=== PATIENT | female | born 1985 | race Caucasian/White ===

== ENCOUNTER → 2016-08-07 | Outpatient (CLI) | payer BC ==
[~2016-08-07] MED LIST: ALBUAER2 INH; BUPR150T5 PO; CYAN10005 PO; CYCL10TA6 PO; EFFSR75 PO; GABA-112 PO; LORA5TAB3 PO; METF500T5 PO; NAPR1TAB9 PO; OMEP40CA PO; SYN175 PO
[2016-08-07 14:54] LABS: BASO % 0.1 %; BASO ABS # 0.01 K/uL (0-0.2); COMPLETE YES; HEMATOCRIT 42.7 % (37-47); IG% 0.6 %; LYMPH % 27.6 %; LYMPH ABS # 2.48 K/uL (1.2-3.4); MEAN CELL VOLUME 79.8 fL (80-100); MEAN CORPUSCULAR HEMOGLOBIN 25.4 pg (25-34); MEAN CORPUSCULAR HGB CONC 31.9 g/dl (32-36); MEAN PLATELET VOLUME 8.9 fL (7.4-10.4); MONO % 7.4 %; NEUT % 64.3 %; PLATELET COUNT 313 K/uL (130-400); RED BLOOD COUNT 5.35 M/uL (4.2-5.4); WHITE BLOOD COUNT 8.97 K/uL (4.8-10.8)
== END | disposition home or self-care (01) ==
LOC: C.LAB1850 12:33
PROVIDERS: ATTEND Psychiatry & Neurology Neurology
DX: R20.0 Anesthesia of skin (principal); M25.50 Pain in unspecified joint; E53.8 Deficiency of other specified B group vitamins

== ENCOUNTER → 2016-09-26 | Outpatient (CLI) | payer BC ==
[~2016-09-26] MED LIST changes: +CHOL1000 PO; +EPP3/2 IM; +LISI-729 PO; +PANT40TA PO; +PRED20TA PO; +PRVHFAIN INH
[2016-09-26 17:01] LABS: THYROID STIMULATING HORMONE 0.412 uIu/ml (0.300-4.500)
== END | disposition home or self-care (01) ==
LOC: C.LABPBG 14:24
PROVIDERS: ATTEND Physician Assistant
DX: E03.9 Hypothyroidism, unspecified (principal)

== ENCOUNTER → 2016-10-19 | Outpatient (CLI) | payer BC | END | disposition home or self-care (01) | LOC: C.LABSPEC 09:27 | PROVIDERS: ATTEND Family Medicine | DX: E66.01 Morbid (severe) obesity due to excess calories (principal) ==

== ENCOUNTER → 2016-11-06 | Outpatient (CLI) | payer BC | END | disposition home or self-care (01) | LOC: C.PATHSPEC 13:36 | PROVIDERS: ATTEND Obstetrics & Gynecology | DX: N85.00 Endometrial hyperplasia, unspecified (principal) ==

== ENCOUNTER → 2016-11-28 | Outpatient (CLI) | payer BC | END | disposition home or self-care (01) | LOC: C.LABSPEC 14:04 | PROVIDERS: ATTEND Physician Assistant | DX: N89.8 Other specified noninflammatory disorders of vagina (principal); R30.0 Dysuria ==

== ENCOUNTER → 2016-12-09 | Outpatient (CLI) | payer BC ==
[2016-12-09 17:37] LABS: MANUAL MICROSCOPIC REQUIRED? NO; REVIEW REQ? NO; URINE APPEARANCE TURBID (CLEAR); URINE BILIRUBIN NEG (NEG); URINE COLOR DK YELLOW; URINE EPITHELIAL CELL AUTO >30 /lpf (0-5); URINE NITRITE NEG (NEG); URINE SPECIFIC GRAVITY 1.029 (1.000-1.030); UROBILINOGEN NEG (NEG)
== END | disposition home or self-care (01) ==
LOC: C.LABPBG 15:54
PROVIDERS: ATTEND Physician Assistant
DX: R30.0 Dysuria (principal)

== ENCOUNTER → 2016-12-11 | Outpatient (CLI) | payer BC ==
[2016-12-11 17:01] LABS: ALT/SGPT 39 U/L (12-78); AST/SGOT 19 U/L (15-37); BLOOD UREA NITROGEN 13 mg/dl (7-18); BUN/CREATININE RATIO 17.1 (10-20); CALCIUM 8.5 mg/dl (8.5-10.1); CARBON DIOXIDE 27 mmol/L (21-32); CHLORIDE 107 mmol/L (98-107); CREATININE 0.75 mg/dl (0.60-1.20); GLUCOSE 77 mg/dl (70-99); POTASSIUM 3.8 mmol/L (3.5-5.1); SODIUM 141 mmol/L (136-145)
[2016-12-11 17:03] LABS: ALKALINE PHOSPHATASE 57 U/L (45-117)
[2016-12-12 06:59] LABS: ESTIMATED AVERAGE GLUCOSE 120 mg/dl; HA1C FLAG Normal (Normal)
== END | disposition home or self-care (01) ==
LOC: C.LAB1850 15:35
PROVIDERS: ATTEND Physician Assistant
DX: E28.2 Polycystic ovarian syndrome (principal); E16.1 Other hypoglycemia

== ENCOUNTER → 2017-03-09 | Outpatient (CLI) | payer BC ==
[~2017-03-09] MED LIST changes: -CHOL1000 PO; -EPP3/2 IM; -LISI-729 PO; -PANT40TA PO; -PRED20TA PO; -PRVHFAIN INH
[2017-03-09 18:27] LABS: THYROID STIMULATING HORMONE 0.145 uIu/ml (0.300-4.500)
== END | disposition home or self-care (01) ==
LOC: C.LAB1850 16:45
PROVIDERS: ATTEND Physician Assistant
DX: E06.3 Autoimmune thyroiditis (principal)

== ENCOUNTER → 2017-03-24 | Outpatient (CLI) | payer BC ==
[2017-03-24 17:53] LABS: COMPLETE YES; HEMATOCRIT 42.8 % (37-47); IG% 0.7 %; LYMPH % 24.9 %; LYMPH ABS # 2.16 K/uL (1.2-3.4); MEAN CELL VOLUME 81.8 fL (80-100); MEAN CORPUSCULAR HEMOGLOBIN 25.4 pg (25-34); MEAN CORPUSCULAR HGB CONC 31.1 g/dl (32-36); MEAN PLATELET VOLUME 8.8 fL (7.4-10.4); MONO % 6.8 %; NEUT % 67.6 %; PLATELET COUNT 347 K/uL (130-400); RED BLOOD COUNT 5.23 M/uL (4.2-5.4); WHITE BLOOD COUNT 8.69 K/uL (4.8-10.8)
[2017-03-24 17:57] LABS: URINE APPEARANCE CLOUDY (CLEAR); URINE BILIRUBIN NEG (NEG); URINE COLOR YELLOW; URINE EPITHELIAL CELL AUTO >30 /lpf (0-5); URINE NITRITE NEG (NEG); URINE SPECIFIC GRAVITY 1.031 (1.000-1.030); UROBILINOGEN NEG (NEG)
[2017-03-24 18:00] LABS: MANUAL MICROSCOPIC REQUIRED? NO; REVIEW REQ? YES
[2017-03-24 18:21] LABS: ALT/SGPT 28 U/L (12-78); BLOOD UREA NITROGEN 15 mg/dl (7-18); BUN/CREATININE RATIO 22.6 (10-20); CALCIUM 9.5 mg/dl (8.5-10.1); CARBON DIOXIDE 23 mmol/L (21-32); CHLORIDE 104 mmol/L (98-107); CREATININE 0.68 mg/dl (0.60-1.20); GLUCOSE 103 mg/dl (70-99); POTASSIUM 3.8 mmol/L (3.5-5.1); SODIUM 136 mmol/L (136-145)
[2017-03-24 18:24] LABS: ALKALINE PHOSPHATASE 61 U/L (45-117); AST/SGOT 17 U/L (15-37)
[2017-04-02 15:15] LABS: O&P SOURCE OTHER-STOOL
[2017-04-10 09:34] LABS: BORDETELLA PERTUSSIS SOURCE Nasal Swab
== END | disposition home or self-care (01) ==
LOC: C.LABPBG 14:43
PROVIDERS: ATTEND Family Medicine
DX: R19.7 Diarrhea, unspecified (principal); Z87.898 Personal history of other specified conditions; R10.9 Unspecified abdominal pain; Z20.818 Contact with and (suspected) exposure to other bacterial communicable diseases

== ENCOUNTER → 2017-04-02 | Outpatient (CLI) | payer BC ==
--- NOTE | 2017-04-02 10:03 | DIAGNOSTIC IMAGING REPORT ---
ABDOMINAL ULTRASOUND, RIGHT UPPER QUADRANT HISTORY: Right upper quadrant abdominal pain. COMPARISON: CT of the abdomen and pelvis March 06, 2014. FINDINGS: This study is compromised by suboptimal penetration. Hepatic echogenicity is increased. This represents fatty infiltration of the liver. The liver is mildly enlarged. No hepatic lesions are identified although sensitivity is diminished on this exam. No gallstones or identified. There is no biliary ductal dilatation. The common bile duct measures 6 mm in caliber. The pancreas is largely obscured. There is no right hydronephrosis. IMPRESSION: 1. Fatty infiltration of the liver. 2. No gallstones or biliary ductal dilatation identified. 3. Exam compromised by suboptimal penetration. Largely obscured pancreas. Electronically signed by: Sd Zamora M.D. 04/02/2017 10:02 AM Dictated Date/Time: 04/02/2017 9:59 AM
[2017-04-02 13:20] LABS: THYROID STIMULATING HORMONE 0.707 uIu/ml (0.300-4.500)
== END | disposition home or self-care (01) ==
LOC: C.ULTR 09:26
PROVIDERS: ATTEND Registered Nurse
DX: R10.11 Right upper quadrant pain (principal); E03.9 Hypothyroidism, unspecified; E06.3 Autoimmune thyroiditis; K76.0 Fatty (change of) liver, not elsewhere classified

== ENCOUNTER → 2017-06-05 | Outpatient (CLI) | payer BC ==
[~2017-06-05] MED LIST changes: -ALBUAER2 INH; +CEPH-571 PO; +CHOL1000 PO; +CTF50 PO; +DIPH1TAB87 PO; +EPIN0.3I14 IM; +EPP3/2 IM; +LEVO150T9 PO; +LIRA18IN SC; +LISI-729 PO; +NRN100 PO; -OMEP40CA PO; +OMEP40CA41 PO; +PANT40TA PO; +PRED20TA PO; +PROM25TA16 PO; +PRVHFAIN INH; +PYRI100T4 PO; +VNTHFA/IN INH; +[UNRECOGNIZED DRUG - CODE] TOP
== END | disposition home or self-care (01) ==
LOC: C.LABPBG 12:45
PROVIDERS: ATTEND Obstetrics & Gynecology
DX: Z32.01 Encounter for pregnancy test, result positive (principal)

== ENCOUNTER 2017-06-09 20:08 | Emergency (ER) | payer BC ==
[~2017-06-09] VITALS: Ht 170.2 cm; Wt 143.8 kg
[~2017-06-09 20:08] MED LIST changes: -CEPH-571 PO; -CHOL1000 PO; -CTF50 PO; -DIPH1TAB87 PO; -EFFSR75 PO; -EPIN0.3I14 IM; -LEVO150T9 PO; -LIRA18IN SC; -METF500T5 PO; -NRN100 PO; -OMEP40CA41 PO; -PRED20TA PO; -PROM25TA16 PO; -PYRI100T4 PO; -VNTHFA/IN INH; -[UNRECOGNIZED DRUG - CODE] TOP
[2017-06-09 20:12] VITALS: Ht 170.2 cm; Wt 143.8 kg
[2017-06-09] MEDS ORDERED: EFFSR75 PO (20:20)
[2017-06-09] MEDS ORDERED: METF500T5 PO (20:20)
[2017-06-09] MEDS ORDERED: ACETAMINOPHEN 500 MG TAB PO STA (20:26)
[2017-06-09] MEDS ORDERED: LORAZEPAM 2 MG/ML 1 ML VIAL IV STA (20:26)
[2017-06-09] MEDS ORDERED: DiphenhydrAMINE HCL 50 MG/ML VIAL IV STA (20:26)
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
[2017-06-09 20:31] VITALS: O2SAT 97
[2017-06-09 21:03] LABS: COMPLETE YES; HEMATOCRIT 39.6 % (37-47); IG% 0.6 %; LYMPH % 21.2 %; LYMPH ABS # 1.89 K/uL (1.2-3.4); MEAN CELL VOLUME 80.5 fL (80-100); MEAN CORPUSCULAR HEMOGLOBIN 26.4 pg (25-34); MEAN CORPUSCULAR HGB CONC 32.8 g/dl (32-36); MEAN PLATELET VOLUME 8.4 fL (7.4-10.4); MONO % 6.6 %; NEUT % 71.6 %; PLATELET COUNT 240 K/uL (130-400); RED BLOOD COUNT 4.92 M/uL (4.2-5.4)
[2017-06-09] MEDS ORDERED: [UNRECOGNIZED DRUG - CODE] TOP (21:10)
[2017-06-09] MEDS ORDERED: PROM25TA16 PO (21:10)
[2017-06-09] MEDS ORDERED: OMEP40CA41 PO (21:10)
[2017-06-09] MEDS ORDERED: LEVO150T9 PO (21:10)
[2017-06-09] MEDS ORDERED: NRN100 PO (21:10)
[2017-06-09] MEDS ORDERED: LIRA18IN SC (21:10)
[2017-06-09] MEDS ORDERED: PRED20TA PO (21:10)
[2017-06-09] MEDS ORDERED: CTF50 PO (21:10)
[2017-06-09] MEDS ORDERED: VNTHFA/IN INH (21:10)
[2017-06-09] MEDS ORDERED: EPIN0.3I14 IM (21:10)
[2017-06-09 21:11] LABS: URINE APPEARANCE CLEAR (CLEAR); URINE BILIRUBIN NEG (NEG); URINE COLOR DK YELLOW; URINE EPITHELIAL CELL AUTO >30 /lpf (0-5); URINE NITRITE NEG (NEG); URINE SPECIFIC GRAVITY 1.021 (1.000-1.030); UROBILINOGEN NEG (NEG); ZZUR CULT IF INDIC CLEAN CATCH YES
[2017-06-09] MEDS ORDERED: PYRI100T4 PO (21:12)
[2017-06-09 21:13] LABS: PROTHROMBIN TIME (PATIENT) 10.3 SECONDS (9.0-12.0)
[2017-06-09] MEDS ORDERED: DIPH1TAB87 PO (21:13)
[2017-06-09 21:19] LABS: BLOOD UREA NITROGEN 10 mg/dl (7-18); BUN/CREATININE RATIO 12.2 (10-20); CALCIUM 8.7 mg/dl (8.5-10.1); CARBON DIOXIDE 22 mmol/L (21-32); CHLORIDE 103 mmol/L (98-107); GLUCOSE 92 mg/dl (70-99); POTASSIUM 3.7 mmol/L (3.5-5.1); SODIUM 136 mmol/L (136-145)
[2017-06-09 21:24] LABS: ALKALINE PHOSPHATASE 47 U/L (45-117); ALT/SGPT 31 U/L (12-78); AST/SGOT 16 U/L (15-37)
[2017-06-09 21:29] LABS: MANUAL MICROSCOPIC REQUIRED? NO; REVIEW REQ? NO
--- NOTE | 2017-06-09 21:31 | DIAGNOSTIC IMAGING REPORT ---
CHEST ONE VIEW PORTABLE CLINICAL HISTORY: Chest pain. COMPARISON STUDY: Chest radiograph May 30, 2008. TECHNIQUE: The patient's abdomen and pelvis were double shielded due to positive test. Upright portable AP chest radiograph was obtained. FINDINGS: No pneumothorax or pleural effusion is present. There is no evidence for pulmonary edema. No consolidation is identified. Cardiac size is at the upper limits of normal. This may reflect a hypoventilatory study. IMPRESSION: No acute cardiopulmonary findings. Electronically signed by: Sd Zamora M.D. 06/09/2017 9:30 PM Dictated Date/Time: 06/09/2017 9:29 PM
[2017-06-09] MEDS ORDERED: CEPHALEXIN MONOHYDRATE 250 MG CAP PO ONE (21:45)
[2017-06-09] MEDS ORDERED: CHOL1000 PO (22:03)
--- NOTE | 2017-06-09 22:05 | DIAGNOSTIC IMAGING REPORT ---
<14 WKS SINGLE CLINICAL HISTORY: . Purported dates of LMP 05/03/17 COMPARISON STUDY: No previous studies for comparison. TECHNIQUE: Transabdominal and transvaginal sonography of the pelvis was performed. FINDINGS: An intrauterine gestational sac is noted with a mean sac diameter of 9 mm. A yolk sac is noted, measuring 2.3 mm. No pole was identified. Note is made of an 8 mm hypoechoic subchorionic focus which suggests a small subchorionic hematoma. The right ovary was not visualized. The left ovary measures 3.2 x 2.4 x 2.6 cm and contained a 1.6 cm cystic lesion which may reflect a corpus luteal cyst. There is no free fluid. No adnexal mass is identified. IMPRESSION: 1. Intrauterine gestational sac which contains a yolk sac. No pole identified however this likely reflects a normal early intrauterine gestation. Clinical follow-up, including serial beta hCG levels and ultrasound, is recommend. 2. Suspected small subchorionic hematoma measuring 8 mm. 3. Nonvisualization of the right ovary. Suspected left ovarian corpus luteal cyst. Electronically signed by: Sd Zamora M.D. 06/09/2017 10:04 PM Dictated Date/Time: 06/09/2017 9:59 PM
[2017-06-09] MEDS ORDERED: CEPH-571 PO (22:33)
[2017-06-09 22:42] VITALS: BP 125/72; PULSE 98; TEMP 36.7; O2SAT 99
== END 2017-06-09 23:04 | disposition home or self-care (01) ==
LOC: C.EDB 20:10 → C.EDC 23:04
DX: F41.9 Anxiety disorder, unspecified (principal); Z3A.01 Less than 8 weeks gestation of pregnancy; R06.02 Shortness of breath; N30.01 Acute cystitis with hematuria; E03.9 Hypothyroidism, unspecified; I10 Essential (primary) hypertension; G43.909 Migraine, unspecified, not intractable, without status migrainosus; F32.9 Major depressive disorder, single episode, unspecified; J45.909 Unspecified asthma, uncomplicated; E66.9 Obesity, unspecified; Z79.84 Long term (current) use of oral hypoglycemic drugs; Z87.442 Personal history of urinary calculi; Z83.3 Family history of diabetes mellitus; Z82.49 Family history of ischemic heart disease and other diseases of the circulatory system; Z84.1 Family history of disorders of kidney and ureter

== ENCOUNTER → 2017-06-09 | Outpatient (CLI) | payer BC | END | disposition home or self-care (01) | LOC: C.LABPBG 12:57 | PROVIDERS: ATTEND Obstetrics & Gynecology | DX: Z32.01 Encounter for pregnancy test, result positive (principal) ==

== ENCOUNTER → 2017-06-18 | Outpatient (CLI) | payer BC ==
[~2017-06-18] MED LIST changes: +ACET-1256 PO; -BUPR150T5 PO; +CETI10TA84 PO; +CHOL1000 PO; +CHOL20007 PO; +CLIN1GEL5 TOP; +CLR10 PO; +CTF50 PO; -CYCL10TA6 PO; +DIPH1TAB87 PO; +EFF/375 PO; +EFFSR75 PO; +EPIN0.3I14 IM; -EPP3/2 IM; +FOLI1TAB8 PO; -GABA-112 PO; +INSU100I2 SQ; +INSU1INJ23 SQ; +LEVO150T9 PO; +LIRA18IN SC; -LISI-729 PO; -LORA5TAB3 PO; +METF500T5 PO; -NAPR1TAB9 PO; +NRN100 PO; +OMEP40CA41 PO; +ONDA4TAB10 SL; +ONDA4TAB46 SL; +OXYC-57 PO; -PANT40TA PO; +PRED20TA PO; +PRENTAB26 PO; +PRLSR20 PO; +PROM25TA16 PO; -PRVHFAIN INH; +PYRI100T4 PO; +RIBO100T9 PO; -SYN175 PO; +VENL225T27 PO; +VNTHFA/IN INH; +VRPSR180 PO; +[UNRECOGNIZED DRUG - CODE] TOP
== END | disposition home or self-care (01) ==
LOC: C.LABSPEC 13:14
PROVIDERS: ATTEND Obstetrics & Gynecology
DX: Z34.01 Encounter for supervision of normal first pregnancy, first trimester (principal)

== ENCOUNTER → 2017-06-26 | Outpatient (CLI) | payer BC ==
[2017-06-26 10:50] LABS: HEMATOCRIT 39.8 % (37-47); IG# 0.04 K/uL (0.00-0.02); LYMPH % 21.7 %; LYMPH ABS # 1.59 K/uL (1.2-3.4); MEAN CELL VOLUME 80.1 fL (80-100); MEAN CORPUSCULAR HEMOGLOBIN 26.2 pg (25-34); MEAN CORPUSCULAR HGB CONC 32.7 g/dl (32-36); MEAN PLATELET VOLUME 8.6 fL (7.4-10.4); MONO % 5.7 %; MONO ABS # 0.42 K/uL (0.11-0.59); NEUT % 72.1 %; NEUT ABS # 5.29 K/uL (1.4-6.5); PLATELET COUNT 276 K/uL (130-400); RED CELL DISTRIBUTION WIDTH CV 15.5 % (11.5-14.5); RED CELL DISTRIBUTION WIDTH SD 45.3 fL (36.4-46.3); WHITE BLOOD COUNT 7.34 K/uL (4.8-10.8)
[2017-06-26 11:10] LABS: HEMOGLOBIN A1C 5.5 % (4.5-5.6)
== END | disposition home or self-care (01) ==
LOC: C.LAB1850 10:02
PROVIDERS: ATTEND Obstetrics & Gynecology
DX: O09.91 Supervision of high risk pregnancy, unspecified, first trimester (principal); Z3A.00 Weeks of gestation of pregnancy not specified; E03.9 Hypothyroidism, unspecified; R73.03 Prediabetes; E16.1 Other hypoglycemia

== ENCOUNTER → 2017-07-13 | Outpatient (CLI) | payer BC ==
[~2017-07-13] MED LIST changes: -ACET-1256 PO; -CETI10TA84 PO; -CHOL20007 PO; -CLIN1GEL5 TOP; -CLR10 PO; -EFF/375 PO; -FOLI1TAB8 PO; -INSU100I2 SQ; -INSU1INJ23 SQ; -ONDA4TAB10 SL; -ONDA4TAB46 SL; -OXYC-57 PO; -PRENTAB26 PO; -PRLSR20 PO; -RIBO100T9 PO; -VENL225T27 PO; -VRPSR180 PO
== END | disposition home or self-care (01) ==
LOC: C.LAB1850 15:16
PROVIDERS: ATTEND Obstetrics & Gynecology
DX: O10.919 Unspecified pre-existing hypertension complicating pregnancy, unspecified trimester (principal)

== ENCOUNTER 2017-07-29 07:34 | Emergency (ER) | payer BC ==
[~2017-07-29] VITALS: Ht 170.2 cm; Wt 140.5 kg
[2017-07-29 07:38] VITALS: TEMP 36.8; Ht 170.2 cm; Wt 140.5 kg
[2017-07-29] MEDS ORDERED: ACETAMINOPHEN 500 MG TAB PO STA (07:43)
[2017-07-29] MEDS ORDERED: SODIUM CHLORIDE 0.9% 1000ML 1,000 ML IV STA (07:43)
[2017-07-29] MEDS ORDERED: DiphenhydrAMINE HCL 50 MG/ML VIAL IV STA ×2 (08:09→10:03)
[2017-07-29 08:27] LABS: HEMATOCRIT 40.9 % (37-47); HEMOGLOBIN 13.4 g/dL (12.0-16.0); IG# 0.05 K/uL (0.00-0.02); LYMPH ABS # 0.99 K/uL (1.2-3.4); MEAN CELL VOLUME 80.5 fL (80-100); MEAN CORPUSCULAR HEMOGLOBIN 26.4 pg (25-34); MEAN CORPUSCULAR HGB CONC 32.8 g/dl (32-36); MEAN PLATELET VOLUME 8.4 fL (7.4-10.4); MONO % 7.9 %; MONO ABS # 0.46 K/uL (0.11-0.59); NEUT % 74.2 %; NEUT ABS # 4.32 K/uL (1.4-6.5); PLATELET COUNT 240 K/uL (130-400); RED CELL DISTRIBUTION WIDTH CV 15.1 % (11.5-14.5); RED CELL DISTRIBUTION WIDTH SD 44.1 fL (36.4-46.3); WHITE BLOOD COUNT 5.82 K/uL (4.8-10.8)
[2017-07-29] MEDS ORDERED: CETI10TA84 PO (08:43)
[2017-07-29] MEDS ORDERED: FOLI1TAB8 PO (08:43)
[2017-07-29] MEDS ORDERED: PRENTAB26 PO (08:43)
[2017-07-29 08:45] LABS: ALBUMIN 3.4 gm/dl (3.4-5.0); CALCIUM 9.1 mg/dl (8.5-10.1); CREATININE 0.71 mg/dl (0.60-1.20); POTASSIUM 3.7 mmol/L (3.5-5.1)
[2017-07-29 08:48] LABS: TOTAL PROTEIN 7.7 gm/dl (6.4-8.2)
[2017-07-29 09:33] LABS: INFLUENZA B ANTIGEN Neg for Influ B (NEG)
[2017-07-29] MEDS ORDERED: MoRPHine SULFATE 4 MG/ML 1 ML CARP\\VIAL IV STA (10:10)
[2017-07-29 10:49] VITALS: BP 116/85; PULSE 76; O2SAT 95
--- NOTE | 2017-07-29 11:06 | EMERGENCY ROOM VISIT NOTE ---
History First contact with patient: 07:41 Chief Complaint: HEADACHE Stated Complaint: MIGRAINE, VOMITING History of Present Illness The patient is a 31 year old female who presents to the Emergency Room with complaints of "migraine, vomiting". The patient states that she has a history of prediabetes, hypertension, hypothyroidism, kidney stones. She states that this past Thursday she began with upper abdominal pain/nausea. She states that she had vomiting. She notes that the vomiting has stopped and now she has headache and neck pain. This headache is similar to previous however there is no neck pain. She states that the pain as a 9/10. There is associated chills, nausea, diarrhea, spots in her vision. She denies any sore throat, fever, chest pain, shortness of breath. She tried Tylenol last evening at 9 PM without relief. She notes that she is 13 weeks , and her last appointment was this past Thursday. She does have a coworker with walking pneumonia, as well as her friends boyfriend had bacterial meningitis last week. Review of Systems A complete 6-point Review of Systems was discussed with the patient, with pertinent positives and negatives listed in the History of Present Illness. All remaining Review of Systems questions can be considered negative unless otherwise specified. Past Medical/Surgical History Medical Problems: (1) Asthma (2) Calculus Of Ureter (3) Common Migraine W/O Intractable Migraine (4) Headache, acute (5) Hypothyroidism Nos (6) Kidney stone on right side (7) Kidney stone on right side (8) Left ankle sprain (9) Lumbar Disc Displacement (10) Migraine (11) Obesity, Nos (12) Renal colic on right side (13) Renal colic on right side Surgical Problems: (1) History of back surgery (2) History of back surgery (3) History of wisdom tooth extraction (4) Hx of LASIK (5) Left ankle surgery Family History Diabetes mellitus Hypertension Kidney disease Kidney stones Social History Smoking Status: Never Smoker Alcohol Use: occasionally Marital Status: single Housing Status: lives with family Occupation Status: employed Current/Historical Medications Scheduled Adapalene (Adapalene), 1 APPLN TOP HS Cetirizine (Zyrtec), 10 MG PO DAILY Cholecalciferol (Vitamin D3), 1,000 INTER.UNIT PO DAILY Cyanocobalamin (Vitamin B-12), 2,000 MCG PO DAILY Folic Acid (Folvite), 1 TAB PO DAILY Gabapentin (Gabapentin), 100 MG PO AMHS Levothyroxine Sodium (Levothyroxine Sodium), 150 MCG PO DAILY Liraglutide (Victoza), 1.2 MG SC DAILY Metformin Hcl Er (Glucophage Er), 1,000 MG PO BID Multivit/Min/Iron/Fol Ac/Pren ( Vitamin), 1 TAB PO DAILY Omeprazole (Prilosec), 40 MG PO QAM Pyridoxine (Vitamin B6), 100 MG PO DAILY Venlafaxine Hcl (Effexor Extended Rel), 75 MG PO TID Scheduled PRN Albuterol Hfa (Ventolin Hfa), 2 PUFFS INH Q4H PRN for Asthma Symptoms Diphenhydramine Hcl (Benadryl Allergy), 25 MG PO UD PRN for ALLERGIC REACTION Epinephrine (Epinephrine), 0.3 MG IM UD PRN for ALLERGIC REACTION Promethazine HCl (Promethazine HCl), 25 MG PO Q8 PRN for Nausea Physical Exam Vital Signs Date Time Temp Pulse Resp B/P (MAP) Pulse Ox O2 Delivery O2 Flow Rate FiO2 07/29/17 10:49 76 16 116/85 95 Room Air 07/29/17 09:02 89 20 97 Room Air 07/29/17 07:38 36.8 98 20 141/89 97 Room Air Physical Exam VITAL SIGNS - Vital signs and nursing notes were reviewed. Stable. GENERAL - 31-year-old female appearing her stated age who is in no acute distress. Communicates well with provider and answers questions appropriately. SKIN - Without rashes. No petechia or meningeal rash. HEAD - NC/AT. EYES - PERRL with EOMI bilaterally. Sclera anicteric. EARS - No deformities of external structures noted on gross examination bilaterally. NOSE - Midline and without cyanosis. No epistaxis or purulent drainage noted. MOUTH/OROPHARYNX - Without perioral cyanosis. Buccal mucosa pink and moist and without leukoplakia. Tongue midline with equal elevation of palate bilaterally. No tonsillar hypertrophy, erythema, or exudates noted. Fair dentition noted. NECK - Neck with FROM. Supple to palpation. No lymphadenopathy noted. No nuchal rigidity. LUNGS - Chest wall symmetric without accessory muscle use, intercostals retractions, or central cyanosis. Normal vesicular breath sounds CTA B/L. No wheezes, rales, or rhonchi appreciated. CARDIAC - RRR with S1/S2. No murmur, rubs, or gallops appreciated. EXTREMITIES - +5/5 strength noted in UE/LE bilaterally. NEUROLOGIC - Cranial nerves II through XII grossly intact. PSYCH - A&O, and cooperates fully with examiner. Pt is very pleasant and interacts well with examiner. Medical Decision & Procedures Laboratory Results 07/29/17 08:15 Red Blood Count 5.08, Mean Corpuscular Volume 80.5, Mean Corpuscular Hemoglobin 26.4, Mean Corpuscular Hemoglobin Concent 32.8, Mean Platelet Volume 8.4, Neutrophils (%) (Auto) 74.2, Lymphocytes (%) (Auto) 17.0, Monocytes (%) (Auto) 7.9, Eosinophils (%) (Auto) 0.0, Basophils (%) (Auto) 0.0, Neutrophils # (Auto) 4.32, Lymphocytes # (Auto) 0.99, Monocytes # (Auto) 0.46, Eosinophils # (Auto) 0.00, Basophils # (Auto) 0.00 07/29/17 08:15 Test 07/29/17 08:15 07/29/17 08:50 White Blood Count 5.82 K/uL (4.8-10.8) Red Blood Count 5.08 M/uL (4.2-5.4) Hemoglobin 13.4 g/dL (12.0-16.0) Hematocrit 40.9 % (37-47) Mean Corpuscular Volume 80.5 fL (80-100) Mean Corpuscular Hemoglobin 26.4 pg (25-34) Mean Corpuscular Hemoglobin Concent 32.8 g/dl (32-36) Platelet Count 240 K/uL (130-400) Mean Platelet Volume 8.4 fL (7.4-10.4) Neutrophils (%) (Auto) 74.2 % Lymphocytes (%) (Auto) 17.0 % Monocytes (%) (Auto) 7.9 % Eosinophils (%) (Auto) 0.0 % Basophils (%) (Auto) 0.0 % Neutrophils # (Auto) 4.32 K/uL (1.4-6.5) Lymphocytes # (Auto) 0.99 K/uL (1.2-3.4) Monocytes # (Auto) 0.46 K/uL (0.11-0.59) Eosinophils # (Auto) 0.00 K/uL (0-0.5) Basophils # (Auto) 0.00 K/uL (0-0.2) RDW Standard Deviation 44.1 fL (36.4-46.3) RDW Coefficient of Variation 15.1 % (11.5-14.5) Immature Granulocyte % (Auto) 0.9 % Immature Granulocyte # (Auto) 0.05 K/uL (0.00-0.02) Anion Gap 10.0 mmol/L (3-11) Est Creatinine Clear Calc Drug Dose 168.9 ml/min Estimated GFR () 131.5 Estimated GFR (Non- 113.5 BUN/Creatinine Ratio 11.0 (10-20) Calcium Level 9.1 mg/dl (8.5-10.1) Magnesium Level 2.0 mg/dl (1.8-2.4) Total Bilirubin 0.3 mg/dl (0.2-1) Aspartate Amino Transf (AST/SGOT) 15 U/L (15-37) Alanine Aminotransferase (ALT/SGPT) 24 U/L (12-78) Alkaline Phosphatase 50 U/L (45-117) Total Protein 7.7 gm/dl (6.4-8.2) Albumin 3.4 gm/dl (3.4-5.0) Globulin 4.3 gm/dl (2.5-4.0) Albumin/Globulin Ratio 0.8 (0.9-2) Urine Color DK YELLOW Urine Appearance CLOUDY (CLEAR) Urine pH 5.0 (4.5-7.5) Urine Specific Stanton 1.022 (1.000-1.030) Urine Protein NEG (NEG) Urine Glucose (UA) NEG (NEG) Urine Ketones 3+ (NEG) Urine Occult Blood TRACE (NEG) Urine Nitrite NEG (NEG) Urine Bilirubin NEG (NEG) Urine Urobilinogen NEG (NEG) Urine Leukocyte Esterase SMALL (NEG) Urine WBC (Auto) 10-30 /hpf (0-5) Urine RBC (Auto) 5-10 /hpf (0-4) Urine Hyaline Casts (Auto) 5-10 /lpf (0-5) Urine Epithelial Cells (Auto) >30 /lpf (0-5) Urine Bacteria (Auto) 1+ (NEG) Influenza Type A Antigen Neg for Influ A (NEG) Influenza Type B Antigen Neg for Influ B (NEG) Medications Administered Medications (Trade) Dose Ordered Sig/Paula Route Start Time Stop Time Status Last Admin Dose Admin Sodium Chloride 1,000 ml @ 999 mls/hr Q1H1M STAT IV 07/29/17 07:43 07/29/17 08:43 DC 07/29/17 07:43 999 MLS/HR Acetaminophen (Tylenol Tab) 500 mg NOW STAT PO 07/29/17 07:43 07/29/17 08:04 DC 07/29/17 08:24 500 MG Diphenhydramine HCl (Benadryl Inj) 25 mg NOW STAT IV 07/29/17 08:09 07/29/17 08:10 DC 07/29/17 08:23 25 MG Diphenhydramine HCl (Benadryl Inj) 25 mg NOW STAT IV 07/29/17 10:03 07/29/17 10:04 DC 07/29/17 10:21 25 MG Morphine Sulfate (MoRPHine SULFATE INJ) 4 mg NOW STAT IV 07/29/17 10:10 07/29/17 10:11 DC 07/29/17 10:21 4 MG Medical Decision Patient was seen and evaluated as above. She presents to us today with her father with complaints of migraine, vomiting. She is nontoxic on exam. She does appear to have some photosensitivity. There is no nuchal rigidity. She is able to exhibit full range of motion of her neck. Her headache is similar to previous hole in the accompany neck pain. I suspect she likely is experiencing a viral/flulike illness causing her other symptoms and this has exacerbated the headache. There is no evidence of meningitis on my exam. IV access was initiated, and the above workup was performed. There is no leukocytosis or concerning anemia. Patient metabolic panel reveals no evidence of kidney or liver failure. Urine does reveal 3+ ketones, trace occult blood, small amount of leukocytes, 10-30 white blood cells, and a small amount of hyaline casts and red blood cells. There are greater than 30 epithelial cells and 1+ urinary bacteria. I favor this to be likely contaminated sample. She is negative for flu. She was given fluids as well as Tylenol here and Benadryl. She was feeling better but notes that her headache persists. She does not feel comfortable going home yet at this time secondary to the amount of pain she is experiencing. I did increase the Benadryl to another 25 mg IV and after discussing the case with the attending physician was recommended that I provide her with a small dose of morphine. Prior to administering any medication a thorough discussion was had regarding medications and . She was informed upon that no medication is safe, however benefits versus risk must be observed. She did consent to the medications provided here today after discussing each. This was provided. She was reevaluated and feeling much better. She was nontoxic on exam, and declined lumbar puncture. She was educated upon management, educated upon worrisome symptoms which to return, had questions prior to discharge, and was discharged home in good condition. In evaluation treatment this patient following differential diagnoses were entertained: Miscarriage, acid reflux, pancreatitis, viral like illness, meningitis, among others. The patient has no spotting, or lower abdominal cramping. I do not suspect miscarriage. I suspect she is likely experiencing a viral illness exacerbating her underlying migraine. Impression Primary Impression: Headache Additional Impression: Flu-like symptoms Departure Information Dispostion Home / Self-Care Condition GOOD Referrals Rhina Marrero MD (PCP) Patient Instructions My [facility] Additional Instructions You have been treated in the Emergency Department for a Headache. You have received pain medicine in the emergency department which impairs your ability to operate a vehicle. It is illegal for you to drive after receiving these medicines. For pain control, you can use the following [id number] medicines (if >12 yo): - Regular strength (325mg/tab) Tylenol (acetaminophen) 2 tabs every 4-6 hours as needed. Do not exceed 12 tablets in a 24 hour period. Avoid taking more than 3 grams (3000 mg) of Tylenol per day. This includes any other sources of acetaminophen you may take on a regular basis. You should relax in a quiet, dark place for the rest of the day. Avoid any possible triggers including: cigarette smoke, caffeine, nicotine, chocolate, wine, beer, loud noises or music, or bright lights. You should schedule a follow-up appointment in 2-3 days with your Primary Care Provider or established Neurologist for further evaluation and treatment of your Headache. Return to the Emergency Department if your current symptoms worsen despite treatment course outlined above, or if you develop any of the following symptoms : intractable pain despite aforementioned treatment course, visual disturbances , loss of vision, unilateral weakness or facial drooping, slurring of speech, loss of coordination, or loss of consciousness. Problem Qualifiers
== END 2017-07-29 11:25 | disposition home or self-care (01) ==
LOC: C.EDB 07:35
DX: O99.352 Diseases of the nervous system complicating pregnancy, second trimester (principal); O99.89 Other specified diseases and conditions complicating pregnancy, childbirth and the puerperium; G43.909 Migraine, unspecified, not intractable, without status migrainosus; M54.2 Cervicalgia; R68.83 Chills (without fever); R11.0 Nausea; R19.7 Diarrhea, unspecified; O99.810 Abnormal glucose complicating pregnancy; O16.2 Unspecified maternal hypertension, second trimester; O99.282 Endocrine, nutritional and metabolic diseases complicating pregnancy, second trimester; O99.512 Diseases of the respiratory system complicating pregnancy, second trimester; E03.9 Hypothyroidism, unspecified; J45.909 Unspecified asthma, uncomplicated; Z79.84 Long term (current) use of oral hypoglycemic drugs; Z83.3 Family history of diabetes mellitus; Z82.49 Family history of ischemic heart disease and other diseases of the circulatory system; Z84.1 Family history of disorders of kidney and ureter

== ENCOUNTER 2017-08-22 09:35 | Emergency (ER) | payer BC ==
[~2017-08-22] VITALS: Ht 170.2 cm; Wt 140.5 kg
[~2017-08-22 09:35] MED LIST changes: +CETI10TA84 PO; -CTF50 PO; +FOLI1TAB8 PO; -PRED20TA PO; +PRENTAB26 PO
[2017-08-22 09:39] VITALS: TEMP 36.7; Ht 170.2 cm; Wt 140.5 kg
[2017-08-22] MEDS ORDERED: SODIUM CHLORIDE 0.9% 1000ML 1,000 ML IV STA (09:47)
[2017-08-22] MEDS ORDERED: ACETAMINOPHEN IV 100 ML IV STA (10:02)
[2017-08-22 10:23] LABS: BASO % 0.1 %; BASO ABS # 0.01 K/uL (0-0.2); HEMATOCRIT 41.1 % (37-47); HEMOGLOBIN 13.5 g/dL (12.0-16.0); IG# 0.11 K/uL (0.00-0.02); LYMPH % 11.4 %; LYMPH ABS # 0.94 K/uL (1.2-3.4); MEAN CORPUSCULAR HEMOGLOBIN 26.3 pg (25-34); MEAN CORPUSCULAR HGB CONC 32.8 g/dl (32-36); MEAN PLATELET VOLUME 8.4 fL (7.4-10.4); MONO % 3.3 %; MONO ABS # 0.27 K/uL (0.11-0.59); NEUT % 83.9 %; NEUT ABS # 6.92 K/uL (1.4-6.5); PLATELET COUNT 233 K/uL (130-400); RED CELL DISTRIBUTION WIDTH CV 14.9 % (11.5-14.5); RED CELL DISTRIBUTION WIDTH SD 43.1 fL (36.4-46.3); WHITE BLOOD COUNT 8.25 K/uL (4.8-10.8)
[2017-08-22 10:39] LABS: ALBUMIN 3.4 gm/dl (3.4-5.0); CALCIUM 9.1 mg/dl (8.5-10.1); CREATININE 0.66 mg/dl (0.60-1.20); POTASSIUM 3.8 mmol/L (3.5-5.1)
[2017-08-22 10:42] LABS: TOTAL PROTEIN 7.6 gm/dl (6.4-8.2)
[2017-08-22 10:44] LABS: INR 0.9 (0.9-1.1); PTT PATIENT 26.4 SECONDS (21.0-31.0)
--- NOTE | 2017-08-22 11:12 | DIAGNOSTIC IMAGING REPORT ---
LIMITED (US) CLINICAL HISTORY: 16 weeks 3 days with cramping and vaginal spotting. COMPARISON STUDY: ultrasound June 09, 2017. TECHNIQUE: Transabdominal sonography of the pelvis was performed. FINDINGS: Please note that a dedicated anatomical survey was not performed. Single viable intrauterine gestation is noted with normal heart rate of 149 bpm. Amniotic fluid appears to be within normal limits subjectively. The cervix is closed, measuring approximately 5.3 cm in length. The placenta is located anteriorly. There is no placental abnormality on transabdominal ultrasound. Neither ovary was visualized. There was no free fluid. IMPRESSION: 1. Single viable intrauterine gestation with normal heart rate of 149 bpm. 2. No placental abnormality by sonography. 3. Nonvisualization of the ovaries. Electronically signed by: Sd Zamora M.D. 08/22/2017 11:11 AM Dictated Date/Time: 08/22/2017 11:09 AM
[2017-08-22] MEDS ORDERED: ONDA4TAB10 SL (11:34)
[2017-08-22 12:16] VITALS: BP 122/63; PULSE 89; O2SAT 100
--- NOTE | 2017-08-22 17:03 | EMERGENCY ROOM VISIT NOTE ---
ED Visit Note First contact with patient: 09:44 Chief Complaint: Right lower back and abdominal cramping. History of Present Illness: Ms. Jalloh is a 32-year-old white female who ambulates into the ED accompanied by a female friend with complaints of right lower lumbar and right lower quadrant abdominal cramping. Historically patient reports she has polycystic ovary disease. She also reports she is currently 17 weeks with an EDC of February 03. She is 1 and para 0. She reports she has been on going morning sickness with her . Patient reports approximately 4 hours before she arrived in the emergency department she started experiencing right lower back pain which eventually started radiating into the right lower quadrant area. She reports her pain has been constant. She describes the pain as a cramping sensation. She rates her discomfort 4/10. After approximately 1 hour of from the onset of back pain she started experiencing the right lower quadrant pain. She identifies these as 1 pain. She has not identified any aggravating or alleviating factors related to the pain. She has not taken any medication for pain prior to arrival at the hospital. She does report she went to the bathroom after the onset of pain and when she wiped herself she noted a pink like discharge on the toilet tissue. She denies fevers, chills, sweats, skin eruptions, skin color changes, upper respiratory tract symptoms, shortness of breath, chest pain, flank pain, urinary burning, urinary frequency, feelings of incomplete voiding, urinary urgency, vaginal discharge, recent painful intercourse, lower extremity weakness /numbness/tingling, genital paresthesias, bowel and bladder dysfunction. Review of Systems: As noted above in history of present illness. All body systems were reviewed and found to be negative as noted above. Past Medical History: As previously noted, gestational diabetes, hypertension, unspecified dermatological condition, asthma, kidney stones, status post Lasix surgery, unspecified lumbar back surgery, unspecified right ankle surgery and wisdom teeth extraction. Current Medications: Medications Dose Route/Sig Max Daily Dose Days Date Category Dose Instructions Zyrtec (Cetirizine HCl) 10 Mg Tab 10 Mg PO DAILY 07/29/17 Reported Folvite (Folic Acid) 1 Mg Tab 1 Tab PO DAILY 90 07/29/17 Reported Vitamin (Prenat Multivit/Ward/Iron/Folic Ac) Tab 1 Tab PO DAILY 07/29/17 Reported Benadryl Allergy (Diphenhydramine Hcl) 25 Mg Tab 25 Mg PO UD PRN 06/09/17 Reported TAKE PER PACKAGE DIRECTIONS Vitamin B6 (Pyridoxine HCl) 100 Mg Tab 100 Mg PO DAILY 06/09/17 Reported Ventolin Hfa (Albuterol) 200 Puffs/87733 Mcg Aers 2 Puffs INH Q4H PRN 06/09/17 Reported Gabapentin 100 Mg Cap 100 Mg PO AMHS 06/09/17 Reported Epinephrine 0.3 Mg/0.3 Ml Inj 0.3 Mg IM UD PRN 06/09/17 Reported Levothyroxine Sodium 150 Mcg Tab 150 Mcg PO DAILY 06/09/17 Reported Promethazine HCl 25 Mg Tab 25 Mg PO Q8 PRN 06/09/17 Reported Adapalene 0.3 % Gel 1 Appln TOP HS 06/09/17 Reported Victoza (Liraglutide) 18 Mg/3 Ml Inj 1.2 Mg SC DAILY 06/09/17 Reported Prilosec (Omeprazole) 40 Mg Cap 40 Mg PO QAM 06/09/17 Reported Vitamin D3 (Cholecalciferol) 1,000 Unit Tab 1,000 Inter.unit PO DAILY 04/29/17 Reported Effexor Extended Rel (Venlafaxine Hcl) 75 Mg Capcr 75 Mg PO TID 05/29/16 Reported Glucophage Er (Metformin HCl) 500 Mg Tab 1,000 Mg PO BID 05/29/16 Reported Vitamin B-12 (Cyanocobalamin) 1,000 Mcg Tab 2,000 Mcg PO DAILY 12/30/14 Reported Allergies to Medications: Lisinopril, pertussis vaccination and progesterone. Social History: Patient is currently employed; she lives with her and feels safe in her home environment; she denies tobacco and alcohol use. Physical Examination: Vital Signs: Date Time Temp Pulse Resp B/P (MAP) Pulse Ox O2 Delivery O2 Flow Rate FiO2 08/22/17 12:16 89 16 122/63 100 Room Air 08/22/17 09:39 36.7 93 18 148/91 98 Room Air GENERAL: 32-year-old female in mild distress due to pain, nontoxic-appearing, afebrile and hemodynamically stable. NEUROLOGICAL: Awake, alert and oriented to person, place and time. Answering questions appropriately and following commands. Normal gait. Good hand eye coordination. No focal motor sensory deficits. SKIN: Warm, dry and pink. No soft tissue eruptions or trauma noted. HEENT: Atraumatic and normocephalic. PERRLA. Sclera white and conjunctiva pink. No drainage from naris. Oral cavity moist and pink. Pharynx is nonerythematous or edematous. Speech normal. No lymphadenopathy. Trachea midline. No jugular venous distention. BACK: No tenderness over the bony thoracic and lumbar spine. No tenderness throughout the thoracic or lumbar paraspinous muscles. No muscle spasm. No CVA tenderness. THORAX: Lungs sounds are clear to auscultation and equal bilaterally with symmetrical chest wall. No wheezing, rales or rhonchi. No crepitus, tenderness , subcutaneous air or deformities noted. HEART: Regular rate and rhythm. No gallops, rubs or murmurs are appreciated. ABDOMEN: Obese, soft and nontender. Positive bowel sounds in all quadrants. No guarding, rigidity or organomegaly. PELVIC: External genitalia: Normal hair distribution over labia minor without pubic lice. Vulva without ulcers, vesicles or erythema. Bartholin's, Martinsdale's and urethral glands without discharge, erythema or palpable masses. Urethra without discharge or inflammation. No cystocele, urethrocele, or enterocele. Anus without hemorrhoids, discharge or skin tags. Speculum exam: Vagina pink, mucosa not atrophy, slight whitish discharge. Cervix 2 cm in diameter with a small os and around without lesions, discharge or ectropion. No blood in the posterior vaginal vault. The oz was closed. Clear cervical mucus present. EXTREMITIES: Moves all extremities well on command and with purpose. All distal neurovascular statuses are intact and equal bilaterally. No calf tenderness or cords. ED Course: Patient is assessed as noted above. Patient's medication list was reviewed. Laboratory Testing: Test 08/22/17 10:10 08/22/17 10:15 Range/Units White Blood Count 8.25 4.8-10.8 K/uL Red Blood Count 5.14 4.2-5.4 M/uL Hemoglobin 13.5 12.0-16.0 g/dL Hematocrit 41.1 37-47 % Mean Corpuscular Volume 80.0 80-100 fL Mean Corpuscular Hemoglobin 26.3 25-34 pg Mean Corpuscular Hemoglobin Concent 32.8 32-36 g/dl Platelet Count 233 130-400 K/uL Mean Platelet Volume 8.4 7.4-10.4 fL Neutrophils (%) (Auto) 83.9 % Lymphocytes (%) (Auto) 11.4 % Monocytes (%) (Auto) 3.3 % Eosinophils (%) (Auto) 0.0 % Basophils (%) (Auto) 0.1 % Neutrophils # (Auto) 6.92 1.4-6.5 K/uL Lymphocytes # (Auto) 0.94 1.2-3.4 K/uL Monocytes # (Auto) 0.27 0.11-0.59 K/uL Eosinophils # (Auto) 0.00 0-0.5 K/uL Basophils # (Auto) 0.01 0-0.2 K/uL RDW Standard Deviation 43.1 36.4-46.3 fL RDW Coefficient of Variation 14.9 11.5-14.5 % Immature Granulocyte % (Auto) 1.3 % Immature Granulocyte # (Auto) 0.11 0.00-0.02 K/uL Prothrombin Time 9.9 9.0-12.0 SECONDS Prothromb Time International Ratio 0.9 0.9-1.1 Activated Partial Thromboplast Time 26.4 21.0-31.0 SECONDS Partial Thromboplastin Ratio 1.0 Sodium Level 137 136-145 mmol/L Potassium Level 3.8 3.5-5.1 mmol/L Chloride Level 104 98-107 mmol/L Carbon Dioxide Level 25 21-32 mmol/L Anion Gap 8.0 3-11 mmol/L Blood Urea Nitrogen 10 7-18 mg/dl Creatinine 0.66 0.60-1.20 mg/dl Est Creatinine Clear Calc Drug Dose 180.0 ml/min Estimated GFR () 135.5 Estimated GFR (Non- 116.9 BUN/Creatinine Ratio 14.5 10-20 Random Glucose 86 70-99 mg/dl Calcium Level 9.1 8.5-10.1 mg/dl Total Bilirubin 0.3 0.2-1 mg/dl Aspartate Amino Transf (AST/SGOT) 23 15-37 U/L Alanine Aminotransferase (ALT/SGPT) 46 12-78 U/L Alkaline Phosphatase 51 45-117 U/L Total Protein 7.6 6.4-8.2 gm/dl Albumin 3.4 3.4-5.0 gm/dl Globulin 4.2 2.5-4.0 gm/dl Albumin/Globulin Ratio 0.8 0.9-2 Human Chorionic Gonadotropin, Quant 40260 mIU/mL Urine Color DK YELLOW Urine Appearance CLOUDY CLEAR Urine pH 5.0 4.5-7.5 Urine Specific Kosse 1.022 1.000-1.030 Urine Protein 1+ NEG Urine Glucose (UA) NEG NEG Urine Ketones 1+ NEG Urine Occult Blood 3+ NEG Urine Nitrite NEG NEG Urine Bilirubin NEG NEG Urine Urobilinogen NEG NEG Urine Leukocyte Esterase TRACE NEG Urine WBC (Auto) 5-10 0-5 /hpf Urine RBC (Auto) >30 0-4 /hpf Urine Hyaline Casts (Auto) 1-5 0-5 /lpf Urine Epithelial Cells (Auto) >30 0-5 /lpf Urine Bacteria (Auto) NEG NEG Urine Test POS NEG Ultrasound: Was reviewed by myself and read by the radiologist showing a single viable intrauterine gestation with normal heart rate of 149 bpm. No placenta abnormalities on sonogram. Nonvisualized ovaries. Patient was hydrated with normal saline and received 1 g of Tylenol IV. Patient was reassessed multiple times during her stay in the emergency department. Patient's case was reviewed with Dr. Dorsey; agreed on diagnostic approach, treatment, disposition and plan. Patient's case was consulted with Dr. Wiggins, gynecology; she recommended seeing a minute thin for pain, vaginal rest and office follow-up on Thursday. Patient is educated about today's findings and instructed on her treatment plan ; she verbalized understanding and agreement with this plan. Clinical Impression: Lower back pain. Right-sided pelvic pain. Decision-Making: Initially in my differential diagnosis I considered spontaneous , acute appendicitis, urinary tract infection, constipation , ovarian cyst rupture, ovarian torsion, ectopic and other causes. Disposition: Patient discharged home in stable condition; prior to departure she was reassessed and subjectively reported she was feeling better and rated her discomfort 2/10. Plan: Patient was encouraged to 650 mg of acetaminophen every 6 hours as needed for pain. Patient was prescribed Zofran 4 mg every 6 hours as needed for nausea/vomiting. Patient was encouraged to stay well-hydrated with increased clearance fluid. Patient was urged to consider a bland diet for 48 hours. Patient was encouraged to have vaginal rest until followed up with gynecology. Patient is encouraged to keep her appointment on Thursday with gynecology for recheck. Patient is encouraged to return to the ED for worsening/uncontrolled pain, vaginal bleeding, uncontrolled vomiting, fevers or any new/concerning symptoms.
== END 2017-08-22 12:17 | disposition home or self-care (01) ==
LOC: C.EDB 09:36 → C.EDA 12:17
DX: O26.892 Other specified pregnancy related conditions, second trimester (principal); O99.282 Endocrine, nutritional and metabolic diseases complicating pregnancy, second trimester; O24.419 Gestational diabetes mellitus in pregnancy, unspecified control; O16.2 Unspecified maternal hypertension, second trimester; O99.512 Diseases of the respiratory system complicating pregnancy, second trimester; M54.5 Low back pain; R10.2 Pelvic and perineal pain; E28.2 Polycystic ovarian syndrome; J45.909 Unspecified asthma, uncomplicated; Z3A.17 17 weeks gestation of pregnancy; Z79.84 Long term (current) use of oral hypoglycemic drugs; Z88.8 Allergy status to other drugs, medicaments and biological substances; Z88.7 Allergy status to serum and vaccine

== ENCOUNTER → 2017-08-24 | Outpatient (CLI) | payer BC ==
[~2017-08-24] MED LIST changes: +ONDA4TAB10 SL
== END | disposition home or self-care (01) ==
LOC: C.LAB1850 17:09
PROVIDERS: ATTEND Obstetrics & Gynecology
DX: O09.92 Supervision of high risk pregnancy, unspecified, second trimester (principal)

== ENCOUNTER → 2017-09-21 | Outpatient (CLI) | payer BC | END | disposition home or self-care (01) | LOC: C.LABSPEC 17:44 | PROVIDERS: ATTEND Obstetrics & Gynecology | DX: R39.15 Urgency of urination (principal) ==

== ENCOUNTER → 2017-09-24 | Outpatient (CLI) | payer BC | END | disposition home or self-care (01) | LOC: C.LAB1850 15:02 | PROVIDERS: ATTEND Physician Assistant | DX: E03.9 Hypothyroidism, unspecified (principal) ==

== ENCOUNTER → 2017-09-24 | Outpatient (CLI) | payer BC | END | disposition home or self-care (01) | LOC: C.LABSPEC 10:41 | PROVIDERS: ATTEND Urology | DX: R31.29 Other microscopic hematuria (principal) ==

== ENCOUNTER → 2017-10-16 | Outpatient (CLI) | payer BC ==
[2017-10-17 07:05] LABS: HEMOGLOBIN A1C 5.7 % (4.5-5.6)
== END | disposition home or self-care (01) ==
LOC: C.LABPBG 15:47
PROVIDERS: ATTEND Physician Assistant
DX: O24.919 Unspecified diabetes mellitus in pregnancy, unspecified trimester (principal); O99.280 Endocrine, nutritional and metabolic diseases complicating pregnancy, unspecified trimester; O24.119 Pre-existing type 2 diabetes mellitus, in pregnancy, unspecified trimester; E03.9 Hypothyroidism, unspecified; E28.2 Polycystic ovarian syndrome; E11.9 Type 2 diabetes mellitus without complications; Z3A.00 Weeks of gestation of pregnancy not specified

== ENCOUNTER → 2017-11-13 | Outpatient (CLI) | payer BC ==
[~2017-11-13] MED LIST changes: +ACET-1256 PO; +CHOL20007 PO; +CLIN1GEL5 TOP; +INSU100I2 SQ; +INSU1INJ23 SQ; +ONDA4TAB46 SL; +PRLSR20 PO; +RIBO100T9 PO; +VENL225T27 PO
== END | disposition home or self-care (01) ==
LOC: C.LABPBG 15:37
PROVIDERS: ATTEND Physician Assistant
DX: E03.9 Hypothyroidism, unspecified (principal)

== ENCOUNTER 2017-11-16 15:13 | Emergency (ER) | payer BC ==
[~2017-11-16] VITALS: Ht 170.2 cm; Wt 149.5 kg
[~2017-11-16 15:13] MED LIST changes: -ACET-1256 PO; -CHOL20007 PO; -CLIN1GEL5 TOP; -INSU100I2 SQ; -INSU1INJ23 SQ; -ONDA4TAB46 SL; -PRLSR20 PO; -RIBO100T9 PO; -VENL225T27 PO
[2017-11-16 15:19] VITALS: PULSE 131; TEMP 36.8; Ht 170.2 cm; Wt 149.5 kg
[2017-11-16] MEDS ORDERED: SODIUM CHLORIDE 0.9% 1000ML 2,000 ML IV STA (15:32)
[2017-11-16] MEDS ORDERED: ONDANSETRON INJ 2 MG/ML 2 ML VIAL IV STA (15:32)
[2017-11-16] MEDS ORDERED: CHOL20007 PO (15:48)
[2017-11-16] MEDS ORDERED: PRLSR20 PO (16:04)
[2017-11-16] MEDS ORDERED: RIBO100T9 PO (16:09)
[2017-11-16] MEDS ORDERED: VENL225T27 PO (16:10)
[2017-11-16] MEDS ORDERED: ONDA4TAB46 SL (16:12)
[2017-11-16] MEDS ORDERED: INSU1INJ23 SQ (16:14)
[2017-11-16] MEDS ORDERED: INSU100I2 SQ (16:16)
[2017-11-16] MEDS ORDERED: ACET-1256 PO (16:17)
[2017-11-16] MEDS ORDERED: CLIN1GEL5 TOP (16:20)
[2017-11-16 16:36] VITALS: BP 131/83; O2SAT 96
[2017-11-16 17:03] LABS: BASO % 0.1 %; BASO ABS # 0.01 K/uL (0-0.2); HEMOGLOBIN 12.2 g/dL (12.0-16.0); IG# 0.14 K/uL (0.00-0.02); LYMPH % 6.2 %; LYMPH ABS # 0.61 K/uL (1.2-3.4); MEAN CELL VOLUME 77.2 fL (80-100); MEAN CORPUSCULAR HEMOGLOBIN 24.8 pg (25-34); MEAN CORPUSCULAR HGB CONC 32.1 g/dl (32-36); MEAN PLATELET VOLUME 8.7 fL (7.4-10.4); MONO % 3.9 %; MONO ABS # 0.39 K/uL (0.11-0.59); NEUT % 88.4 %; NEUT ABS # 8.74 K/uL (1.4-6.5); PLATELET COUNT 252 K/uL (130-400); RED CELL DISTRIBUTION WIDTH CV 16.3 % (11.5-14.5); RED CELL DISTRIBUTION WIDTH SD 45.2 fL (36.4-46.3); WHITE BLOOD COUNT 9.89 K/uL (4.8-10.8)
[2017-11-16 17:33] LABS: ALBUMIN 2.7 gm/dl (3.4-5.0); ALKALINE PHOSPHATASE 83 U/L (45-117); ALT/SGPT 19 U/L (12-78); AST/SGOT 14 U/L (15-37); BLOOD UREA NITROGEN 9 mg/dl (7-18); CALCIUM 8.9 mg/dl (8.5-10.1); CARBON DIOXIDE 22 mmol/L (21-32); CREATININE 0.54 mg/dl (0.60-1.20); GLUCOSE 68 mg/dl (70-99); LIPASE 183 U/L (73-393); POTASSIUM 3.8 mmol/L (3.5-5.1); SODIUM 137 mmol/L (136-145); TOTAL PROTEIN 7.7 gm/dl (6.4-8.2)
--- NOTE | 2017-11-16 21:45 | EMERGENCY ROOM VISIT NOTE ---
History Report prepared by Michel: Anibal Davis Under the Supervision of: Dr. Guillaume Ford D.O. First contact with patient: 15:24 Chief Complaint: VOMITING Stated Complaint: 29 WKS ,HEADACHE,OB SENT HERE Nursing Triage Summary: c/o intermittent lower abd pain that started last night with vomiting starting this am at 0600. pt is 29 weeks and was referred by Dr. Ruiz. also c/o headache. History of Present Illness The patient is a 32 year old female who presents to the Emergency Room with complaints of waxing and waning lower abdominal pain beginning this morning. The patient states that she developed abdominal pain and nausea last night. She notes that when she woke up this morning, she vomited, and has been persistently vomiting since. She reports that her abdominal pain worsens every half hour, but does not radiate to her back. The patient states that her abdominal pain does not get better after she vomits. She rates her pain as a 9/ 10. She also complains of a headache. She notes that she called her OB today, as she is 29 weeks , and was referred to the emergency department today for her symptoms. She reports that this is her first . The patient states that her last bowl movement was today at 1100 and was loose. She denies any urinary symptoms, numbness/weakness in her arms, and vaginal bleeding/ discharge. She notes that she has no previous history of abdominal surgeries and does not have any known sick contacts. Source of History: patient Onset: this morning Position: abdomen (lower) Symptom Intensity: 9/10 Timing: waxes/wanes Associated Symptoms: + headache, + nausea, + vomiting, No back pain, No urinary symptoms Note: The patient also complains of loose stool. She denies any numbness/weakness in her arms and vaginal bleeding/discharge. Review of Systems See HPI for pertinent positives & negatives. A total of 10 systems reviewed and were otherwise negative. Past Medical & Surgical Medical Problems: (1) 29 weeks gestation of (2) Abdominal pain (3) Asthma (4) Calculus Of Ureter (5) Common Migraine W/O Intractable Migraine (6) Gestational diabetes (7) Headache (8) Headache, acute (9) Hypothyroidism Nos (10) Kidney stone on right side (11) Kidney stone on right side (12) Left ankle sprain (13) Lumbar Disc Displacement (14) Migraine (15) Nausea & vomiting (16) Obesity, Nos (17) Renal colic on right side (18) Renal colic on right side Surgical Problems: (1) History of back surgery (2) History of back surgery (3) History of wisdom tooth extraction (4) Hx of LASIK (5) Left ankle surgery Family History Diabetes mellitus Heart disease Hypertension Kidney disease Kidney stones Social History Smoking Status: Never Smoker Alcohol Use: occasionally Marital Status: Housing Status: lives with family Occupation Status: employed Current/Historical Medications Scheduled Cetirizine (Zyrtec), 10 MG PO DAILY Cholecalciferol (Vitamin D3), 2,000 UNITS PO DAILY Clindamycin Phosphate (Topical (Clindamycin Phosphate), 1 APPLN TOP BID Cyanocobalamin (Vitamin B-12), 2,000 MCG PO DAILY Folic Acid (Folvite), 4 MG PO DAILY Insulin Isophane (Human) (Humulin N Kwikpen), 50 UNITS SQ HS Insulin Lispro (Human) (Humalog Kwikpen), 5-10 UNITS SQ AC Levothyroxine Sodium (Levothyroxine Sodium), 150 MCG PO DAILY Multivit/Min/Iron/Fol Ac/Pren ( Vitamin), 1 TAB PO DAILY Omeprazole (Prilosec), 20 MG PO DAILY Venlafaxine Hcl (Venlafaxine Hcl Er), 225 MG PO DAILY Scheduled PRN Acetaminophen (Tylenol), 500 MG PO Q8 PRN for Pain Albuterol Hfa (Ventolin Hfa), 2 PUFFS INH Q4H PRN for Asthma Symptoms Ondansetron Hcl (Zofran), 4 MG SL Q6H PRN for Nausea Promethazine HCl (Promethazine HCl), 25 MG PO Q8 PRN for Nausea Miscellaneous Medications Riboflavin (Vitamin B-2), 400 MG PO Allergies Coded Allergies: Lisinopril (Verified Allergy, Unknown, Swelling of lips, 08/22/17) Pertussis Vaccine (Verified Allergy, Unknown, UNKNOWN, 08/22/17) Progesterone (Verified Allergy, Unknown, itching, 08/22/17) Physical Exam Vital Signs Date Time Temp Pulse Resp B/P (MAP) Pulse Ox O2 Delivery O2 Flow Rate FiO2 11/16/17 16:36 16 131/83 96 11/16/17 15:19 36.8 131 20 140/98 98 Room Air Physical Exam GENERAL: Sitting up in bed, alert, well appearing, well nourished, no distress, non-toxic, disheveled EYE EXAM: normal conjunctiva. OROPHARYNX: no exudate, no erythema, lips, buccal mucosa, and tongue normal and mucous membranes are moist NECK: supple, no nuchal rigidity, no adenopathy, non-tender LUNGS: Clear to auscultation. Normal chest wall mechanics HEART: no murmurs, S1 normal and S2 normal ABDOMEN: abdomen soft, normo-active bowel sounds, no masses, no rebound or guarding, obese, faint tenderness in lower pelvic region. BACK: Back is symmetrical on inspection and there is no deformity, no midline tenderness, no CVA tenderness. SKIN: no rashes and no bruising UPPER EXTREMITIES: upper extremities are grossly normal. LOWER EXTREMITIES: No pitting edema. NEURO EXAM: Normal sensorium, cranial nerves II-XII grossly intact, normal speech, no gross weakness of arms, no gross weakness of legs. FOCUSED BEDSIDE EXAM: IUP with intermittent movement of extremities, heart rate 140. Medical Decision & Procedures Laboratory Results 11/16/17 16:48 Red Blood Count 4.92, Mean Corpuscular Volume 77.2, Mean Corpuscular Hemoglobin 24.8, Mean Corpuscular Hemoglobin Concent 32.1, Mean Platelet Volume 8.7, Neutrophils (%) (Auto) 88.4, Lymphocytes (%) (Auto) 6.2, Monocytes (%) (Auto) 3.9, Eosinophils (%) (Auto) 0.0, Basophils (%) (Auto) 0.1, Neutrophils # (Auto) 8.74, Lymphocytes # (Auto) 0.61, Monocytes # (Auto) 0.39, Eosinophils # (Auto) 0.00, Basophils # (Auto) 0.01 11/16/17 16:48 Test 11/16/17 16:48 White Blood Count 9.89 K/uL (4.8-10.8) Red Blood Count 4.92 M/uL (4.2-5.4) Hemoglobin 12.2 g/dL (12.0-16.0) Hematocrit 38.0 % (37-47) Mean Corpuscular Volume 77.2 fL (80-100) Mean Corpuscular Hemoglobin 24.8 pg (25-34) Mean Corpuscular Hemoglobin Concent 32.1 g/dl (32-36) Platelet Count 252 K/uL (130-400) Mean Platelet Volume 8.7 fL (7.4-10.4) Neutrophils (%) (Auto) 88.4 % Lymphocytes (%) (Auto) 6.2 % Monocytes (%) (Auto) 3.9 % Eosinophils (%) (Auto) 0.0 % Basophils (%) (Auto) 0.1 % Neutrophils # (Auto) 8.74 K/uL (1.4-6.5) Lymphocytes # (Auto) 0.61 K/uL (1.2-3.4) Monocytes # (Auto) 0.39 K/uL (0.11-0.59) Eosinophils # (Auto) 0.00 K/uL (0-0.5) Basophils # (Auto) 0.01 K/uL (0-0.2) RDW Standard Deviation 45.2 fL (36.4-46.3) RDW Coefficient of Variation 16.3 % (11.5-14.5) Immature Granulocyte % (Auto) 1.4 % Immature Granulocyte # (Auto) 0.14 K/uL (0.00-0.02) Urine Color DK YELLOW Urine Appearance CLEAR (CLEAR) Urine pH 5.5 (4.5-7.5) Urine Specific Eleanor 1.018 (1.000-1.030) Urine Protein 2+ (NEG) Urine Glucose (UA) NEG (NEG) Urine Ketones TRACE (NEG) Urine Occult Blood NEG (NEG) Urine Nitrite NEG (NEG) Urine Bilirubin NEG (NEG) Urine Urobilinogen NEG (NEG) Urine Leukocyte Esterase SMALL (NEG) Urine WBC (Auto) 10-30 /hpf (0-5) Urine RBC (Auto) 0-4 /hpf (0-4) Urine Hyaline Casts (Auto) 1-5 /lpf (0-5) Urine Epithelial Cells (Auto) >30 /lpf (0-5) Urine Bacteria (Auto) 1+ (NEG) Urine Test POS (NEG) Anion Gap 10.0 mmol/L (3-11) Est Creatinine Clear Calc Drug Dose 228.5 ml/min Estimated GFR () 144.7 Estimated GFR (Non- 124.9 BUN/Creatinine Ratio 17.1 (10-20) Calcium Level 8.9 mg/dl (8.5-10.1) Total Bilirubin 0.4 mg/dl (0.2-1) Direct Bilirubin < 0.1 mg/dl (0-0.2) Aspartate Amino Transf (AST/SGOT) 14 U/L (15-37) Alanine Aminotransferase (ALT/SGPT) 19 U/L (12-78) Alkaline Phosphatase 83 U/L (45-117) Total Protein 7.7 gm/dl (6.4-8.2) Albumin 2.7 gm/dl (3.4-5.0) Lipase 183 U/L (73-393) Laboratory results per my review. Medications Administered Medications (Trade) Dose Ordered Sig/Paula Route Start Time Stop Time Status Last Admin Dose Admin Sodium Chloride 2,000 ml @ 999 mls/hr Q2H1M STAT IV 11/16/17 15:32 11/16/17 17:32 DC 11/16/17 15:50 999 MLS/HR Ondansetron HCl (Zofran Inj) 4 mg NOW STAT IV 11/16/17 15:32 11/16/17 15:33 DC 11/16/17 15:50 4 MG ED Course ED COURSE: Vital signs were reviewed and showed that the patient was hypertensive and tachycardic. The patients medical record was reviewed The above diagnostic studies were performed and reviewed. ED treatments and interventions as stated above. 1525: The patient was evaluated in room C7. A complete history and physical examination was performed. 1532: Zofran Inj 4mg IV, Sodium Chloride 2000 ml @ 999 mls/hr IV 1536: Upon reevaluation, the patient is stable. I discussed my findings with the patient and she understands and agrees with the treatment plan. Based on the patients age, coexisting illnesses, exam and lab findings the decision to treat as an inpatient was made. The patient remained stable while under my care. Discussed the patient's case with Dr. Kvng [place] [facility] [place] She recommends bringing the patient up to labor and delivery. 1625: I called the charge nurse and requested again that the patient be transferred to OB. Medical Decision Differential diagnoses includes but is not limited to gastritis, peptic ulcer disease, GERD, gallbladder disease, pancreatitis, small bowel obstruction, acute coronary syndrome, pericarditis, ischemic bowel, irritable bowel disease, irritable bowel syndrome, appendicitis, diverticulitis, malignancy, hernia, urinary tract infection, torsion, /ectopic , perforation, trauma, infectious. Patient is a 32-year-old female who presents the ER for nausea which started last night. She is 29 weeks . She did vomit this a.m. She also has had loose bowel movements. She has been unable to keep anything down. IV was established and blood work was obtained. Bedside ultrasound performed and showed IUP with a heart rate of 140. I immediately called OB following presentation as she was having lower abdominal cramping and was 29 weeks . They requested that we transfer her upstairs. Unfortunately she took close to an hour prior to getting upstairs as there is difficulty finding someone to transport her. Blood work including CBC, BMP, LFTs, bilirubin lipase was unremarkable and resulted after transport upstairs. UA did have bacteria was positive and resulted once again when she was upstairs for evaluation. Patient was given fluids and Zofran while in the ER. Medication Reconcilliation Current Medication List: was personally reviewed by me Blood Pressure Screening Patient's blood pressure: Elevated blood pressure Elevated blood pressure will be monitored by OB. Consults Time Called: 153 Consulting Physician: Dr. Kvng DUNCAN, [facility] [place] Returned Call: [phone] Discussed the patient's case with Dr. Calderon. She recommends bringing the patient up to labor and delivery. Impression Primary Impression: Tachycardia Additional Impressions: Dehydration Lower abdominal pain Scribe Attestation The scribe's documentation has been prepared under my direction and personally reviewed by me in its entirety. I confirm that the note above accurately reflects all work, treatment, procedures, and medical decision making performed by me. Departure Information Dispostion Other (Labor and delivery) Referrals Rhina Marrero MD (PCP) Patient Instructions My [facility] Problem Qualifiers Additional Impressions: Weeks of gestation: 29 weeks Qualified Codes: Z3A.29 - 29 weeks gestation of
== END 2017-11-16 16:37 | disposition other institution (70) ==
LOC: C.EDB 15:14 → C.EDC 16:37
DX: O26.893 Other specified pregnancy related conditions, third trimester (principal); R00.0 Tachycardia, unspecified; O99.283 Endocrine, nutritional and metabolic diseases complicating pregnancy, third trimester; E86.0 Dehydration; R10.30 Lower abdominal pain, unspecified; O24.419 Gestational diabetes mellitus in pregnancy, unspecified control; O99.513 Diseases of the respiratory system complicating pregnancy, third trimester; J45.909 Unspecified asthma, uncomplicated; E03.9 Hypothyroidism, unspecified; Z3A.29 29 weeks gestation of pregnancy; Z87.442 Personal history of urinary calculi; Z98.818 Other dental procedure status; Z98.890 Other specified postprocedural states; Z88.8 Allergy status to other drugs, medicaments and biological substances; Z83.3 Family history of diabetes mellitus; Z82.49 Family history of ischemic heart disease and other diseases of the circulatory system; Z84.1 Family history of disorders of kidney and ureter; Z79.4 Long term (current) use of insulin; Z79.899 Other long term (current) drug therapy

== ENCOUNTER 2017-11-16 16:57 | Outpatient (CLI) | payer BC ==
[~2017-11-16 16:57] MED LIST changes: +ACET-1256 PO; +CHOL20007 PO; +CLIN1GEL5 TOP; +INSU100I2 SQ; +INSU1INJ23 SQ; +ONDA4TAB46 SL; +PRLSR20 PO; +RIBO100T9 PO; +VENL225T27 PO
[2017-11-16] MEDS ORDERED: ACETAMINOPHEN 325 MG TAB PO PRN (18:15)
[2017-11-16] MEDS ORDERED: NITROFURANTOIN MONOHYDRATE 100 MG CAP PO STA (18:38)
[2017-11-16] MEDS ORDERED: BUTALBITAL/ACETAMIN/CAFFEINE TAB PO STA (18:38)
== END 2017-11-16 20:40 | disposition home or self-care (01) ==
LOC: C.OPB 16:57 → C.LD 16:57 → C.OPB 20:40
PROVIDERS: ATTEND Obstetrics & Gynecology
DX: O99.89 Other specified diseases and conditions complicating pregnancy, childbirth and the puerperium (principal); R51 Headache; O13.3 Gestational [pregnancy-induced] hypertension without significant proteinuria, third trimester; O99.283 Endocrine, nutritional and metabolic diseases complicating pregnancy, third trimester; O99.613 Diseases of the digestive system complicating pregnancy, third trimester; K21.9 Gastro-esophageal reflux disease without esophagitis; O99.353 Diseases of the nervous system complicating pregnancy, third trimester; G93.5 Compression of brain; Z3A.28 28 weeks gestation of pregnancy; Z79.4 Long term (current) use of insulin

== ENCOUNTER → 2018-01-15 | Outpatient (CLI) | payer BC ==
[~2018-01-15] MED LIST changes: -CHOL1000 PO; +CLR10 PO; -DIPH1TAB87 PO; +EFF/375 PO; -EFFSR75 PO; -EPIN0.3I14 IM; -LIRA18IN SC; -METF500T5 PO; -NRN100 PO; -OMEP40CA41 PO; -ONDA4TAB10 SL; +OXYC-57 PO; -PYRI100T4 PO; +VRPSR180 PO; -[UNRECOGNIZED DRUG - CODE] TOP
[2018-01-15 10:12] LABS: BASO % 0.1 %; BASO ABS # 0.01 K/uL (0-0.2); HEMATOCRIT 37.3 % (37-47); HEMOGLOBIN 11.8 g/dL (12.0-16.0); IG# 0.16 K/uL (0.00-0.02); LYMPH % 15.7 %; LYMPH ABS # 1.36 K/uL (1.2-3.4); MEAN CELL VOLUME 76.3 fL (80-100); MEAN CORPUSCULAR HEMOGLOBIN 24.1 pg (25-34); MEAN PLATELET VOLUME 9.8 fL (7.4-10.4); MONO % 5.4 %; MONO ABS # 0.47 K/uL (0.11-0.59); NEUT ABS # 6.68 K/uL (1.4-6.5); NUCLEATED RED BLOOD CELL ABS 0.03 K/uL (0-0); PLATELET COUNT 194 K/uL (130-400); RED CELL DISTRIBUTION WIDTH CV 16.4 % (11.5-14.5); RED CELL DISTRIBUTION WIDTH SD 44.8 fL (36.4-46.3); WHITE BLOOD COUNT 8.68 K/uL (4.8-10.8)
[2018-01-15 10:21] LABS: MEAN CORPUSCULAR HGB CONC 31.6 g/dl (32-36)
[2018-01-15 10:49] LABS: ALT/SGPT 17 U/L (12-78); AST/SGOT 17 U/L (15-37); CREATININE 0.86 mg/dl (0.60-1.20); URIC ACID 6.1 mg/dl (2.6-7.2)
== END | disposition home or self-care (01) ==
LOC: C.LAB 09:22
PROVIDERS: ATTEND Obstetrics & Gynecology
DX: O10.919 Unspecified pre-existing hypertension complicating pregnancy, unspecified trimester (principal); Z3A.00 Weeks of gestation of pregnancy not specified

== ENCOUNTER 2021-12-06 15:34 | Inpatient (IN) ==
[2021-12-06] MEDS ORDERED: LACTATED RINGER'S 1,000 ML IV PRN (16:02)
[2021-12-06] MEDS ORDERED: OXYTOCIN 30 UNITS/500 ML BAG IV PRN (16:02)
[2021-12-06] MEDS ORDERED: BETAMETH SOD PHOS/ACETATE IA 6 MG/ML IM STA (16:08)
[2021-12-06] MEDS ORDERED: LABETALOL HCL IV 5 MG/ML 20ML IV PRN (16:13)
[2021-12-06] MEDS ORDERED: MAG SULFATE 6GM BOLUS FROM BAG IV ONE (16:13)
[2021-12-06] MEDS ORDERED: INSULIN REGULAR 250 UNITS in SODIUM CHLORIDE 0.9% 247.5 ML IV PRN (16:15)
[2021-12-06] MEDS ORDERED: MAGNESIUM SULFATE / WTR 40 GM/1,000 ML BAG IV SCH (16:15)
[2021-12-06] MEDS ORDERED: DEXTROSE 5% 1,000 ML IV PRN (16:15)
[2021-12-06] MEDS ORDERED: DEXTROSE 50% 50 ML SYRINGE IV PRN (16:15)
[2021-12-06] MEDS ORDERED: SODIUM CHLORIDE 0.9% 1000ML 1,000 ML IV PRN (16:15)
--- NOTE | 2021-12-06 16:28 | History & Physical Report ---
Date of Service December 06, 2021 Assessment & Plan (1) Severe preeclampsia: Plan: CHTN with elevation of pressures to severe range despite ongoing management with oral antihypertensives, and symptom of increasing edema now in hands. Will manage as severe preeclampsia superimposed on cHTN and move to delivery. Planned route is RCS, with BTL. Will give BMTZ as <37wk, aware this may impact glucose but will need insulin GTT also due to DM2 and will be using that to ma intain tight control. GBS unknown but will be using Ancef for preoperative antibiotic, can collect culture for peds benefit afterwards and will require surveillance. Magnesium bolus and infusion. History of Present Illness Primary Care Provider: Rhina Marrero MD 36yo @ 36w5d with visit in office today, BP found to be elevated to severe range despite taking baseline antihypertensive therapy. Additionally c/o swelling in hands which is causing a "tight" feeling, and is new since this morning. No changes to LE edema, no DELGADO, no vis changes, no RUQ pain. Patient has h/o CS, was planned for repeat with BTL. 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 On insulin & metformin both. Has cHTN on labetalol 100mg PO BID. Morbid obesity, weight 370lb. On SSRI for depression On Synthroid for hypothyroid. Prior low lying posterior placenta, now resolved. Sleep apnea, severe, using CPAP nightly. Anesthesia consult done as well as neurology input received for Chiari malformation: ok for attempt at spinal. Allergies Allergy/AdvReac Type Severity Reaction Status Date / Time lisinopril Allergy Unknown Swelling Verified 12/06/21 16:16 of lips Pertussis Vaccines Allergy Unknown UNKNOWN Verified 12/06/21 16:16 progesterone Allergy Unknown itching Verified 12/06/21 16:16 norethindrone Allergy Rash Verified 12/06/21 16:16 Home Medications Medication Instructions Recorded Confirmed Type albuterol sulfate 90 mcg/actuation 2 puff INHALATION Q4 PRN 07/17/18 12/06/21 History aerosol inhaler cetirizine 10 mg tablet (Zyrtec) 10 mg PO DAILY 07/17/18 12/06/21 History cholecalciferol (vitamin D3) 50 2,000 unit PO DAILY 07/17/18 12/06/21 History mcg (2,000 unit) capsule cyanocobalamin (vitamin B-12) 2,000 mcg PO DAILY 07/17/18 12/06/21 History 2,000 mcg tablet acetaminophen 500 mg capsule 1,000 mg PO BID PRN cap 06/02/19 12/06/21 History folic acid 400 mcg tablet 400 mcg PO DAILY 06/02/19 12/06/21 History adapalene 0.3 % topical gel 1 appln TOPICAL UD PRN gm 11/15/19 12/06/21 History clindamycin phosphate 1 % topical 1 appln TOPICAL UD PRN gm 11/15/19 12/06/21 History gel fluticasone propionate 50 2 spray INTRANASAL DAILY PRN 11/15/19 12/06/21 History mcg/actuation nasal spray,suspension nystatin 100,000 unit/gram topical 1 appln TOP DAILY PRN gm 11/15/19 12/06/21 H istory powder betamethasone dipropionate 0.05 % 1 applic TOPICAL BID PRN #15 g 01/29/21 12/06/21 Rx topical cream triamcinolone acetonide 0.1 % 1 applic DENTAL TID PRN g 04/30/21 12/06/21 History dental paste acetone (urine) test (Ketone Urine #50 ea 05/27/21 12/06/21 Rx Test) blood sugar diagnostic (OneTouch #150 ea 05/27/21 12/06/21 Rx Verio test strips) blood-glucose meter (OneTouch #1 ea 05/27/21 12/06/21 Rx Verio Flex meter) lancets 33 gauge (OneTouch Delica #150 ea 05/27/21 12/06/21 Rx Plus Lancet) pen needle, diabetic 32 gauge x #50 ea 05/27/21 12/06/21 Rx 5/32" (BD Ultra-Fine Herlinda Pen Needle) magnesium PO 05/29/21 12/06/21 History prenat.vits,len,mmw-smph-shdsp PO 05/29/21 12/06/21 History levothyroxine 125 mcg tablet 125 mcg PO DAILY #30 tab 06/07/21 12/06/21 Rx riboflavin (vitamin B2) 100 mg 400 mg PO DAILY 30 Days #120 tab 06/14/21 12/06/21 Rx tablet metoclopramide HCl 10 mg tablet 10 mg PO Q6H PRN #14 tab 07/24/21 12/06/21 Rx (Reglan) venlafaxine 75 mg capsule,extended 225 mg PO DAILY #270 cap 08/14/21 12/06/21 Rx release 24 hr omeprazole 20 mg capsule,delayed See Rx Instructions .ROUTE 08/19/21 12/06/21 Rx release .COMPLEX #30 cap aspirin 81 mg tablet,delayed 81 mg PO DAILY 08/20/21 12/06/21 History release oxycodone 5 mg tablet See Rx Instructions PO Q6H PRN #20 08/30/21 12/06/21 Rx tab insulin NPH isoph U-100 human 100 140 unit SUBCUT QPM #60 ml 10/07/21 12/06/21 Rx unit/mL (3 mL) subcutaneous pen (Humulin N NPH U-100 Insulin KwikPen) insulin lispro 200 unit/mL (3 mL) 40 unit SUBCUT TID #24 ml 10/07/21 12/06/21 Rx subcutaneous pen (Humalog KwikPen U-200 Insulin) labetalol 100 mg tablet 100 mg PO Q12H #60 tab 10/07/21 12/06/21 Rx metformin 500 mg tablet,extended 1,000 mg PO BID #360 tab 11/18/21 12/06/21 Rx release 24 hr Patient History Medical History Allergic rhinitis Anxiety disorder Calculus of ureter Chiari malformation type I Mildly low-lying cerebellar tonsils on 06/02/[address] F/U Brain MRI (04/09/21) with the cerebellar tonsils are normal in configuration and no intracranial abnormality is identified. Follows with [facility] [place] neurology Classic migraine with aura Depression Disc displacement, lumbar GERD without esophagitis Gestational diabetes IDDM Carolyne's thyroiditis History of pre-eclampsia Hyperinsulinism Hypothyroidism Obstructive sleep apnea PCOS (polycystic ovarian syndrome) Renal calculi Surgical History History of ankle surgery left History of lumbar fusion History of tooth extraction Hx of section Neurology note (01/12/18): "OK for epidural procedure only, would avoid intrathecal procedure" Per OB H&P (01/15/18): "Anesthesia felt that the patient was not a candidate for regional anesthesia. Because of this, the patient was reluctant to have a vaginal delivery without the ability to have anesthesia. As such, she had opted for an elective primary section." (01/15/18): Elective glidescope #3, ETT 7.0, atraumatic x1 at [facility]. No anesthesia complications noted per post-op anesthesia progress note. Hx of LASIK Family History Grandmother (Paternal) Colon cancer Grandmother (Maternal) Cardiac disorder Mother Depression Hypertension Endometriosis Father Hypertension Hypothyroidism Kidney stones Diabetes Grandmother No problems noted. Sister Heart murmur Rheumatoid arthritis Son No problems noted. Other Heart disease Denies family history of Ovarian cancer Prostate cancer Crohn's disease Myocardial infarction Breast cancer Inflammatory bowel disease Social History Smoking Status: Never smoker Second Hand Exposure: No; Hx Alcohol Use: No Hx Substance Use: No Preferred Language: Irish Communication Ability: Effective Visual Impairment: No Limitations Hearing Ability: Normal [employer] Lecturer Required: No Beliefs That Will Affect Care: None marital status: marital status details: Julius Jalloh [phone] Current Living Situation: Family Current Living Situation Comment: Lives with FOB, son and 1 dog. current occupational status: employed current occupation: THERAPIST Feels Safe at Home: Yes Childhood Exposure to Second-Hand Smoke: No caffeine: Yes during the past year weight has: remained stable Dental Care, Regularly: Yes Physical Activity Frequency: 3-4 Times per Week Seatbelt Use: always Sunscreen Use: Yes Assistive Devices: None Physical Exam Physical Exam: Sitting chair, NAD. Obese, edema visible in feet to +3 / pitting, +2 hands. Face difficult to evaluate 2/2 habitus and masking. Lungs with nonlabored breathing and normal rate Cor normal heart rate, BP 170/84 on arrival here Abd morbidly obese obscuring FH, but recent US reviewed, EFW >98% CVE deferred at this time LE edema as above, DTR 1+ bilateral patellae, UE reflexes 1+ also. Results & Data ([facility]) Vital Signs (Past 12 Hours) Vital Signs Pulse BP 06/10/22 16:04 92 H 170/84 H Code Status & VTE Plan VTE Prophylaxis Plan VTE Prophylaxis will be ordered: Yes Monitoring External Monitor FHT Cat 1 Tocodynamometer Quiet Coding Level of Care Code None Diagnoses Severe preeclampsia O14.10
[2021-12-06 16:44] LABS: Hematocrit (blood only) 32.9 % (37-47); Hemoglobin 10.1 g/dL (12.0-16.0); Mean Corpuscular Hemoglobin 23.4 pg (25-34); Mean Corpuscular Volume 76.2 fL (80-100); Mean Platelet Volume 9.2 fL (7.4-10.4); Platelet Count 219 K/uL (130-400); RDW Coefficient of Variation 16.7 % (11.5-14.5); RDW Standard Deviation 46.4 fL (36.4-46.3); Red Blood Count 4.32 M/uL (4.2-5.4); White Blood Count 9.37 K/uL (4.8-10.8)
[2021-12-06 16:56] LABS: Mean Corpuscular Hgb Conc 30.7 g/dL (32-36)
[2021-12-06] MEDS ORDERED: CITRIC ACID/SODIUM CITRATE 15 ML UDC PO SCH (17:00)
[2021-12-06 17:03] LABS: Alanine Aminotransferase 12 U/L (7-52); Albumin Level 3.3 gm/dl (3.4-5.0); Alkaline Phosphatase 135 U/L (34-104); Anion Gap 8 (3-11); Aspartate Aminotransferase 15 U/L (13-39); BUN Creatinine Ratio 19.3 (10-20); Bilirubin,Total 0.3 mg/dl (0.2-1.0); Blood Urea Nitrogen 11 mg/dl (6-23); Calcium 8.6 mg/dl (8.5-10.1); Carbon Dioxide 22 mmol/L (21-32); Chloride 106 mmol/L (98-107); Est GFR (African American) 138.2 ml/min; Est GFR (Non-African American) 119.3 ml/min; Globulin 3.3 gm/dl (2.5-4.0); Glucose 64 mg/dl (70-99(Fasting)); Potassium 3.8 mmol/L (3.5-5.1); Sodium 136 mmol/L (136-145); Total Protein 6.6 gm/dl (6.0-8.3)
[2021-12-06] MEDS: LACTATED RINGER'S 1,000 ML IV SCH ×2 (17:35→21:33)
--- NOTE | 2021-12-06 17:58 | Anesthesiology Consultation ---
Date of Service December 06, 2021 Assessment & Plan (1) Encounter for pre-operative examination: Chart Review Chart Review: Acceptable Risk for Surgery and Patient NOT seen in Pre Admission Testing Consults Requested none History Surgery Operation Date: 12/06/21 18:00 Proposed Procedures p Section in LD - Lady Wiggins MD Height/Weight Height: 5 ft 7 in Weight: 167.829 kg Allergies Allergy/AdvReac Type Severity Reaction Status Date / Time lisinopril Allergy Unknown Swelling Verified 12/06/21 16:16 of lips Pertussis Vaccines Allergy Unknown UNKNOWN Verified 12/06/21 16:16 progesterone Allergy Unknown itching Verified 12/06/21 16:16 norethindrone Allergy Rash Verified 12/06/21 16:16 Medications Home Medications Medication Instructions Recorded Confirmed Last Taken albuterol sulfate 90 mcg/actuation 2 puff INHALATION Q4 PRN 07/17/18 12/06/21 Unknown aerosol inhaler cetirizine 10 mg tablet (Zyrtec) 10 mg PO DAILY 07/17/18 12/06/21 Unknown cholecalciferol (vitamin D3) 50 2,000 unit PO DAILY 07/17/18 12/06/21 Unknown mcg (2,000 unit) capsule cyanocobalamin (vitamin B-12) 2,000 mcg PO DAILY 07/17/18 12/06/21 Unknown 2,000 mcg tablet acetaminophen 500 mg capsule 1,000 mg PO BID PRN cap 06/02/19 12/06/21 Unknown folic acid 400 mcg tablet 400 mcg PO DAILY 06/02/19 12/06/21 Unknown adapalene 0.3 % topical gel 1 appln TOPICAL UD PRN gm 11/15/19 12/06/21 Unknown clindamycin phosphate 1 % topical 1 appln TOPICAL UD PRN gm 11/15/19 12/06/21 Unknown gel fluticasone propionate 50 2 spray INTRANASAL DAILY PRN 11/15/19 12/06/21 Unknown mcg/actuation nasal spray,suspension nystatin 100,000 unit/gram topical 1 appln TOP DAILY PRN gm 11/15/19 12/06/21 Unknown powder betamethasone dipropionate 0.05 % 1 applic TOPICAL BID PRN #15 g 01/29/21 12/06/21 Unknown topical cream triamcinolone acetonide 0.1 % 1 applic DENTAL TID PRN g 04/30/21 12/06/21 Unknown dental paste acetone (urine) test (Ketone Urine #50 ea 05/27/21 12/06/21 Unknown Test) blood sugar diagnostic (OneTouch #150 ea 05/27/21 12/06/21 Unknown Verio test strips) blood-glucose meter (OneTouch #1 ea 05/27/21 12/06/21 Unknown Verio Flex meter) lancets 33 gauge (OneTouch Delica #150 ea 05/27/21 12/06/21 Unknown Plus Lancet) pen needle, diabetic 32 gauge x #50 ea 05/27/21 12/06/21 Unknown 5/32" (BD Ultra-Fine Herlinda Pen Needle) magnesium PO 05/29/21 12/06/21 Unknown prenat.vits,len,bao-[id number]-[id number] PO 05/29/21 12/06/21 Unknown levothyroxine 125 mcg tablet 125 mcg PO DAILY #30 tab 06/07/21 12/06/21 Unknown riboflavin (vitamin B2) 100 mg 400 mg PO DAILY 30 Days #120 tab 06/14/21 12/06/21 Unknown tablet metoclopramide HCl 10 mg tablet 10 mg PO Q6H PRN #14 tab 07/24/21 12/06/21 Unknown (Reglan) venlafaxine 75 mg capsule,extended 225 mg PO DAILY #270 cap 08/14/21 12/06/21 Unknown release 24 hr omeprazole 20 mg capsule,delayed See Rx Instructions .ROUTE 08/19/21 12/06/21 Unknown release .COMPLEX #30 cap aspirin 81 mg tablet,delayed 81 mg PO DAILY 08/20/21 12/06/21 Unknown release oxycodone 5 mg tablet See Rx Instructions PO Q6H PRN #20 08/30/21 12/06/21 Unknown tab insulin NPH isoph U-100 human 100 140 unit SUBCUT QPM #60 ml 10/07/21 12/06/21 Unknown unit/mL (3 mL) subcutaneous pen (Humulin N NPH U-100 Insulin KwikPen) insulin lispro 200 unit/mL (3 mL) 40 unit SUBCUT TID #24 ml 10/07/21 12/06/21 Unknown subcutaneous pen (Humalog KwikPen U-200 Insulin) labetalol 100 mg tablet 100 mg PO Q12H #60 tab 10/07/21 12/06/21 Unknown metformin 500 mg tablet,extended 1,000 mg PO BID #360 tab 11/18/21 12/06/21 Unknown release 24 hr Active Medications Generic Name Dose Route Start Last Admin Trade Name Freq PRN Reason Stop Dose Admin Lactated Ringer's 1,000 mls @ 75 mls/hr 12/06/21 16:15 12/06/21 17:35 Lr IV 01/05/22 16:14 75 mls/hr .[id number] ELIZA Administration Magnesium Sulfate 40 gm in 1,000 mls @ 50 mls/hr 12/06/21 16:15 12/06/21 17:35 Magnesium Sulfate / Wtr IV 01/05/22 16:14 50 mls/hr .Q20H ELIZA Administration Lactated Ringer's 1,000 mls @ 125 mls/hr 12/06/21 16:02 12/06/21 16:30 Lr IV 12/08/21 16:01 999 mls/hr .Q8H PRN Administration L&D Protocol Protocol NPO Date Last Intake of Fluids: 12/06/21 Time Last Intake of Fluids: 15:30 Date Last Intake of Solids: 12/06/21 Time Last Intake of Solids: 12:00 Last Intake of Solids Comment: 1 Mallo Cup at 1400 Past Medical History Medical History (Updated 12/06/21 @ 17:57 by Helio Manrique MD) Allergic rhinitis Anxiety disorder Calculus of ureter Chiari malformation type I Mildly low-lying cerebellar tonsils on 06/02/[address] F/U Brain MRI (04/09/21) with the cerebellar tonsils are normal in configuration and no intracranial abnormality is identified. [place] [facility] [place] Classic migraine with aura Depression Disc displacement, lumbar GERD without esophagitis Gestational diabetes IDDM Carolyne's thyroiditis History of pre-eclampsia Hyperinsulinism Hypothyroidism Morbid obesity Obstructive sleep apnea PCOS (polycystic ovarian syndrome) Renal calculi Exercise / Class Metabolic Activity II 4-5 Yardwork/Stairs/Walk up hill Past Family History Family History Grandmother (Paternal) Colon cancer Grandmother (Maternal) Cardiac disorder Mother Depression Hypertension Endometriosis Father Hypertension Hypothyroidism Kidney stones Diabetes Grandmother No problems noted. Sister Heart murmur Rheumatoid arthritis Son No problems noted. Other Heart disease Denies family history of Ovarian cancer Prostate cancer Crohn's disease Myocardial infarction Breast cancer Inflammatory bowel disease Past Surgical History Surgical History History of ankle surgery left History of lumbar fusion History of tooth extraction Hx of section Neurology note (01/12/18): "OK for epidural procedure only, would avoid intrathecal procedure" Per OB H&P (01/15/18): "Anesthesia felt that the patient was not a candidate for regional anesthesia. Because of this, the patient was reluctant to have a vaginal delivery without the ability to have anesthesia. As such, she had opted for an elective primary section." (01/15/18): Elective glidescope #3, ETT 7.0, atraumatic x1 at [facility]. No anesthesia complications noted per post-op anesthesia progress note. Hx of LASIK Past Anesthesia History No Hx of Anesthesia Complications and No Family Hx of Anesthesia Complications Social History Smoking Status: Never smoker Hx Alcohol Use: No Hx Substance Use: No substance use type: does not use Physical Exam Vital Signs Last Vital Signs Temp 36.7 C 12/06/21 16:18 Pulse 113 H 12/06/21 17:51 Resp 18 12/06/21 16:18 BP 153/68 H 12/06/21 17:05 Pulse Ox 98 12/06/21 17:51 Testing Laboratory Results 12/06/21 16:33 12/06/21 16:33 12/06/21 12/06/21 16:43 16:39 POC Glucose 61 L* 66 L*
[2021-12-06] MEDS ORDERED: fentaNYL citrate 100 MCG/2 ML VIAL ONE (18:05)
[2021-12-06] MEDS ORDERED: MoRPHine SULFATE PF 1 MG/ML 10 ML AMP/VIAL ONE (18:06)
[2021-12-06] MEDS ORDERED: OXYTOCIN 10 UNITS/ML 10ML VIAL ONE (18:24)
[2021-12-06] MEDS ORDERED: PHENYLEPHRINE 100MCG/ML 5ML SYR ONE (18:26)
[2021-12-06] MEDS ORDERED: ePHEDrine sulfate 50 MG/ML SYR ONE (18:35)
[2021-12-06] MEDS ORDERED: ONDANSETRON INJ 2 MG/ML 2 ML VIAL ONE (18:36)
[2021-12-06] MEDS ORDERED: LACTATED RINGER'S 500 ML IV PRN (18:40)
[2021-12-06] MEDS ORDERED: NALOXONE HCL 0.08 MG in SYRINGE 1.8 ML IV PRN (18:40)
[2021-12-06] MEDS ORDERED: diphenhydrAMINE 50 MG/ML VIAL IV PRN (18:40)
[2021-12-06] MEDS ORDERED: NALOXONE HCL 1 MG in SODIUM CHLORIDE 0.9% 1000ML 1,000 ML IV PRN (18:40)
[2021-12-06] MEDS ORDERED: NALOXONE HCL 0.4 MG/1 ML VIAL/CARP IV PRN (18:40)
[2021-12-06] MEDS ORDERED: NALBUPHINE HCL INJ 10 MG/ML AMP IV PRN (18:40)
[2021-12-06] MEDS ORDERED: ONDANSETRON INJ 2 MG/ML 2 ML VIAL IV PRN (18:40)
[2021-12-06] MEDS ORDERED: HYDROmorphone INJ 0.5 MG/0.5 ML SYR IV PRN (18:40)
[2021-12-06] MEDS ORDERED: ePHEDrine sulfate 50 MG/ML AMP IV PRN (18:40)
[2021-12-06] MEDS ORDERED: MoRPHine SULFATE PF 1 MG/ML 10 ML AMP/VIAL INT SPINAL ONE (18:40)
[2021-12-06] MEDS ORDERED: DC INTRASPINAL MORPHINE SCH (18:45)
[2021-12-06] MEDS ORDERED: NO NARCOTICS OR SEDATIVES SCH (18:45)
[2021-12-06] MEDS ORDERED: SODIUM CHLORIDE 0.9% 1000ML 1,000 ML IV SCH (18:45)
--- NOTE | 2021-12-06 20:09 | Operative Report ---
PG Post Operative Report Pre & Post Diagnosis Operation Date: 12/06/21 18:00 Pre-Op Diagnosis: 1:Severe Preeclampsia 2:Type 2 Diabetes 3:Chronic Hypertension 4:Prior Section 5:Desire Sterilization 6:Sleep Apnea 7:Morbid Obesity Post-Op Diagnosis: 1:Severe Preeclampsia 2:Type 2 Diabetes 3:Chronic Hypertension 4:Prior Section 5:Desire Sterilization 6:Sleep Apnea 7:Morbid Obesity I identified the patient and participated in the time-out.: Yes Procedure Operation Date: 12/06/21 18:00 Actual Procedures p Section in LD for live female child at 1848(Not Applicable) - Lady Wiggins MD s Post Tubal Ligation Labor & Deliv - Lady Wiggins MD Surgeon Lady Wiggins MD Medical Case Worker Polly Mauor Estimated Blood Loss 800 Findings Consistent with Post-Op Diagnosis Specimens Cord blood, Placenta Anesthesia Type Spinal Complications none Disposition Accompanied Patient To Recovery: Yes Disposition: L&D Description of Procedure The patient was placed operating table in the supine position with a leftward tilt. She was prepped and draped in standard sterile fashion. The anesthetic was tested and found to be adequate. A time-out was held, identifying correct p atient, procedure, positioning and preoperative antibiotics. There were no concerns. A high Pfannenstiel skin incision was made with a knife staying above the pannus fold, and taken down to the underlying layer of fascia. The fascia was incised in the midline with the knife and taken out laterally with scissors. The superior edge of the fascial incision was grasped, elevated and dissected off the underlying rectus both superiorly and inferiorly. The muscles were bluntly in the midline. The peritoneum was entered bluntly. The incision was then stretched. The abdomen was explored, found free of adhesions, and an Hebert retractor was placed. The vesicouterine peritoneum was identified, entered with scissors and taken out laterally with scissors. The bladder flap was created digitally. A hysterotomy incision was created transversely in the lower uterine segment, final entry being accomplished in a blunt manner with the absorption plant operator's fingers. Copious clear amniotic fluid was encountered. The absorption plant operator's hand was used to elevate the head to the hysterotomy. The head was delivered using mild fundal pressure, while a Kiwi cup was used to guide the head as well, and the shoulders and body followed without difficulty. The cord was clamped and cut and the infant was then handed off to the awaiting digital analytics manager. Cord blood was obtained. The placenta was Manually extracted. The uterus was exteriorized and cleared of all clot and debris with moistened laparotomy sponges. Once normal uterus, tubes and ovaries were seen, the uterus was re-internalized for repair. The hysterotomy incision was repaired in two layers, the first in a running locked layer, the second in an imbricating layer. Reuben was applied and a clean sponge was placed over the area while attention was turned to tubal ligation procedure. Modified Kamar tubal sterilization was then performed. Each fallopian tube was elevated with a Jeromy clamp, and a knuckle of tube was isolated with a double ligature of 0-chromic. The knuckle was excised sharply, and hemostasis of the stumps was confirmed using brief electrocautery. A final inspection of the hysterotomy revealed good hemostasis. The rectus muscles were allowed to reapproximate naturally. The fascia was then reapproximated with doubled, looped PDS in a running nonlocked manner. The fascia was examined and found to be free of defect following closure. The subcutaneous tissue was copiously irrigated and reapproximated with 0-chromic, in three separate layers, then the skin edges were closed with 4-0 monocryl in a subcuticular fashion. A INDER dressing was applied. The fernando was found to be draining clear yellow urine at completion of the procedure. I attest to the content of the Intraoperative Record and any orders documented therein. Any exceptions are noted below. I attest to the content of the Intraoperative Record and any orders documented therein. Any exceptions are noted below.
[2021-12-06] MEDS ORDERED: HYDROCORTISONE ACETATE 25 MG SUPP PR PRN (20:19)
[2021-12-06] MEDS ORDERED: MAGNESIUM HYDROXIDE SUSP 30 ML UDC PO PRN (20:19)
[2021-12-06] MEDS ORDERED: ALBUTEROL HFA 8 GM INHALER INH PRN (20:19)
[2021-12-06] MEDS ORDERED: FLUTICASONE PROPIONATE NA SPR 16 GM BTL PRN (20:19)
[2021-12-06] MEDS ORDERED: BENZOCAINE 20% AER SPR 82.5 GM CAN EXT PRN (20:19)
[2021-12-06] MEDS ORDERED: SENNA 8.6 MG TAB PO PRN (20:19)
--- NOTE | 2021-12-06 20:20 | Anesthesiology Progress Note ---
Date of Service December 06, 2021 Anesthesia Post Procedure Vital Signs Vital Signs: Temp Pulse Resp BP Pulse Ox 12/06/21 20:17 94 H 98 12/06/21 20:14 99 H 94 12/06/21 20:12 97 H 146/74 H 98 12/06/21 20:07 93 H 100 12/06/21 20:04 93 H 99/50 L 12/06/21 20:02 94 H 100 12/06/21 19:57 92 H 100 12/06/21 19:52 90 100 12/06/21 19:49 96 H 103/51 L 12/06/21 19:47 97 H 100 12/06/21 17:56 105 H 97 12/06/21 17:51 113 H 98 12/06/21 17:46 107 H 97 12/06/21 17:05 99 H 153/68 H 12/06/21 16:51 95 H 166/79 H 12/06/21 16:35 92 H 177/81 H 12/06/21 16:18 36.7 C 92 H 18 170/84 H 12/06/21 16:04 92 H 170/84 H 12/06/21 16:03 36.7 C 18 Transfer of Care Handoff Completed per policy Notes Mental Status: alert / awake / arousable Patient Amnestic to Procedure: Yes Nausea / Vomiting: adequately controlled Pain: adequately controlled Airway Patency, RR, SpO2: stable & adequate BP & HR: stable & adequate Hydration State: stable & adequate Neuraxial Anesthesia: was administered and sensory block is resolving Anesthetic Complications: no major complications apparent and Pt Satisfied with anesthetic care
[2021-12-06] MEDS: KETOROLAC 30 MG/ML VIAL IV PRN (20:53)
[2021-12-06] MEDS: OXYTOCIN 30 UNITS in LACTATED RINGER'S 1,000 ML IV SCH (21:20)
[2021-12-06] MEDS: DOCUSATE SODIUM 100 MG CAP PO SCH (21:30)
[2021-12-06] MEDS: LABETALOL HCL 100 MG TAB PO SCH (21:31)
[2021-12-06] MEDS: metFORMIN HCL ER 500 MG TABCR PO SCH (21:31)
[2021-12-06] MEDS: SIMETHICONE 80 MG CHEW PO SCH (21:31)
--- NOTE | 2021-12-07 02:28 | Hospitalist Consultation ---
Date of Consultation December 07, 2021 Assessment & Plan (1) Insulin resistance: India Jalloh is a 36 yo female s/p delivery on 12/06/21. Insulin Resistance DM - Patient with hx of insulin resistance and GDM - Per record review of PCP and endocrinology documentation, patient on metformin prior to current ; also with previous trial of Trulicity. Had been on insulin with previous as well. Patient states that she was only on metformin prior to most recent and started metformin + insulin during . Per OB records, patient was on insulin prior to . ?? complete medication regimen for hx of insulin resistance and GDM. - Last A1c 6.0% on 11/21/21 - Hold metformin for now - No insulin ordered evening of 12/06 due to hypoglycemia - BSG achs - Will start on ISS and basal in AM. Now that patient has delivered, will need close monitoring to determine further insulin requirements - Glycemic consult ordered - Patient followed by endocrinology in outpt; recommend continued outpt f/u cHTN - Agree w/ continuing labetalol 100mg po BID - Mgmt of pre-eclampsia per primary service Hypothyroidism - Continue home synthroid - Recommend repeat TSH at 3 months - Continue outpt f/u with endocrinology MIMA - Continue use of home CPAP Anxiety - Continue home venlafaxine (2) HTN (hypertension): (3) GERD without esophagitis: (4) Hypothyroidism: (5) Obstructive sleep apnea: Supervising Physician Co-Signing Physician Notes Attending addendum: I have supervised the medical residents activities, and agree with the H&P unless as otherwise noted. Assessment and Plan: Diabetes mellitus/insulin resistance- Hold metformin and Trulicity while inpatient Place on Accu-Cheks before meals and at bedtime with NovoLog coverage per scale as noted Hypertension/preeclampsia- Labetalol 100 mg p.o. twice daily with hold parameters Has been managed by primary service. If additional help required will be available Hypothyroidism- Continue home levothyroxine 125 mcg daily Recheck repeat TSH in 3 months , or sooner if unexplained fatigue, weight gain and/or mood changes Remaining orders and notations as noted History of Present Illness Reason for Consultation: DM Attending Physician: Lady Wiggins MD History of Present Illness India Jalloh is a 36 yo female POD#0 s/p at 36.5 WGA for severe pre- eclampsia. Hospitalist was consulted for multiple medical conditions including cHTN and DM. Patient seen and evaluated at bedside. She states that she overall feels well at this time. Had a headache after delivery that has since fully resolved. Denies lightheadedness, dizziness, or changes in vision. She has a hx of cHTN for which she takes labetalol 100mg po BID. Patient admits that she does not take her BP at home and BP is only checked when at doctor's appointments. With regards to hx of DM/GDM, patient does not think that she has a hx of DM outside of state. She does, however, note that she has taken metformin 1000mg po BID for years but attributes the metformin use to PCOS. During , patient reports being compliant with both metformin as well as insulin. She has been taking NPH 140 units SC qPM and lispro sliding scale (typically 30-50 units) with goal of BSG < 110 with meals. Patient does note feeling "sweats and shakes" when she gets hypoglycemic which for her is sugars in the 80s-90s. Apart from surgical pain, patient denies abdominal pain. She denies nausea or vomiting. Other medical problems for patient including hypothyroidism (controlled on levothyroxine 125mcg po daily), MIMA for which she uses CPAP nightly, anxiety, migraine, GERD, and chiari malformation type I. Allergies Allergy/AdvReac Type Severity Reaction Status Date / Time lisinopril Allergy Unknown Swelling Verified 12/06/21 16:16 of lips Pertussis Vaccines Allergy Unknown UNKNOWN Verified 12/06/21 16:16 progesterone Allergy Unknown itching Verified 12/06/21 16:16 norethindrone Allergy Rash Verified 12/06/21 16:16 Home Medications Medication Instructions Recorded Confirmed Type albuterol sulfate 90 mcg/actuation 2 puff INHALATION Q4 PRN 07/17/18 12/06/21 History aerosol inhaler cetirizine 10 mg tablet (Zyrtec) 10 mg PO DAILY 07/17/18 12/06/21 History cholecalciferol (vitamin D3) 50 2,000 unit PO DAILY 07/17/18 12/06/21 History mcg (2,000 unit) capsule cyanocobalamin (vitamin B-12) 2,000 mcg PO DAILY 07/17/18 12/06/21 History 2,000 mcg tablet acetaminophen 500 mg capsule 1,000 mg PO BID PRN cap 06/02/19 12/06/21 History folic acid 400 mcg tablet 400 mcg PO DAILY 06/02/19 12/06/21 History adapalene 0.3 % topical gel 1 appln TOPICAL UD PRN gm 11/15/19 12/06/21 History clindamycin phosphate 1 % topical 1 appln TOPICAL UD PRN gm 11/15/19 12/06/21 History gel fluticasone propionate 50 2 spray INTRANASAL DAILY PRN 11/15/19 12/06/21 History mcg/actuation nasal spray,suspension nystatin 100,000 unit/gram topical 1 appln TOP DAILY PRN gm 11/15/19 12/06/21 History powder betamethasone dipropionate 0.05 % 1 applic TOPICAL BID PRN #15 g 01/29/21 12/06/21 Rx topical cream triamcinolone acetonide 0.1 % 1 applic DENTAL TID PRN g 04/30/21 12/06/21 History dental paste acetone (urine) test (Ketone Urine #50 ea 05/27/21 12/06/21 Rx Test) blood sugar diagnostic (OneTouch #150 ea 05/27/21 12/06/21 Rx Verio test strips) blood-glucose meter (OneTouch #1 ea 05/27/21 12/06/21 Rx Verio Flex meter) lancets 33 gauge (OneTouch Delica #150 ea 05/27/21 12/06/21 Rx Plus Lancet) pen needle, diabetic 32 gauge x #50 ea 05/27/21 12/06/21 Rx 5/32" (BD Ultra-Fine Herlinda Pen Needle) magnesium PO 05/29/21 12/06/21 History prenat.vits,len,doq-qapd-tzcjo PO 05/29/21 12/06/21 History levothyroxine 125 mcg tablet 125 mcg PO DAILY #30 tab 06/07/21 12/06/21 Rx riboflavin (vitamin B2) 100 mg 400 mg PO DAILY 30 Days #120 tab 06/14/21 12/06/21 Rx tablet metoclopramide HCl 10 mg tablet 10 mg PO Q6H PRN #14 tab 07/24/21 12/06/21 Rx (Reglan) venlafaxine 75 mg capsule,extended 225 mg PO DAILY #270 cap 08/14/21 12/06/21 Rx release 24 hr omeprazole 20 mg capsule,delayed See Rx Instructions .ROUTE 08/19/21 12/06/21 Rx release .COMPLEX #30 cap aspirin 81 mg tablet,delayed 81 mg PO DAILY 08/20/21 12/06/21 History release oxycodone 5 mg tablet See Rx Instructions PO Q6H PRN #20 08/30/21 12/06/21 Rx tab insulin NPH isoph U-100 human 100 140 unit SUBCUT QPM #60 ml 10/07/21 12/06/21 Rx unit/mL (3 mL) subcutaneous pen (Humulin N NPH U-100 Insulin KwikPen) insulin lispro 200 unit/mL (3 mL) 40 unit SUBCUT TID #24 ml 10/07/21 12/06/21 Rx subcutaneous pen (Humalog KwikPen U-200 Insulin) labetalol 100 mg tablet 100 mg PO Q12H #60 tab 10/07/21 12/06/21 Rx metformin 500 mg tablet,extended 1,000 mg PO BID #360 tab 11/18/21 12/06/21 Rx release 24 hr Patient History Medical History (Updated 12/07/21 @ 09:30 by Russ Damon DO) Allergic rhinitis Anxiety disorder Calculus of ureter Chiari malformation type I Mildly low-lying cerebellar tonsils on 06/02/[address] F/U Brain MRI (04/09/21) with the cerebellar tonsils are normal in configuration and no intracranial abnormality is identified. [facility]s [facility] Classic migraine with aura Depression Disc displacement, lumbar GERD without esophagitis Gestational diabetes IDDM Carolyne's thyroiditis History of pre-eclampsia Hyperinsulinism Hypothyroidism Morbid obesity Obstructive sleep apnea PCOS (polycystic ovarian syndrome) Renal calculi Surgical History (Updated 12/07/21 @ 09:24 by Russ Damon DO) History of ankle surgery left History of lumbar fusion History of tooth extraction Hx of section Neurology note (01/12/18): "OK for epidural procedure only, would avoid intrathecal procedure" Per OB H&P (01/15/18): "Anesthesia felt that the patient was not a candidate for regional anesthesia. Because of this, the p atient was reluctant to have a vaginal delivery without the ability to have anesthesia. As such, she had opted for an elective primary section." (01/15/18): Elective glidescope #3, ETT 7.0, atraumatic x1 at [facility]. No anesthesia complications noted per post-op anesthesia progress note. Hx of ENEIDAIK Family History Grandmother (Paternal) Colon cancer Grandmother (Maternal) Cardiac disorder Mother Depression Hypertension Endometriosis Father Hypertension Hypothyroidism Kidney stones Diabetes Grandmother No problems noted. Sister Heart murmur Rheumatoid arthritis Son No problems noted. Other Heart disease Denies family history of Ovarian cancer Prostate cancer Crohn's disease Myocardial infarction Breast cancer Inflammatory bowel disease Social History Smoking Status: Never smoker Second Hand Exposure: No; Hx Alcohol Use: No Hx Substance Use: No Preferred Language: Kosovan Communication Ability: Effective Visual Impairment: No Limitations Hearing Ability: Normal Advanced Practice Psychiatric Nurse Required: No Beliefs That Will Affect Care: None marital status: marital status details: Julius Jalloh (32) [phone] Current Living Situation: Family Current Living Situation Comment: Lives with FOB, son and 1 dog. current occupational status: employed current occupation: THERAPIST Feels Safe at Home: Yes Safety Concerns: Feels Safe At This Time Childhood Exposure to Second-Hand Smoke: No caffeine: Yes during the past year weight has: remained stable Dental Care, Regularly: Yes Physical Activity Frequency: 3-4 Times per Week Seatbelt Use: always Sunscreen Use: Yes Assistive Devices: None Review of Systems Review of Systems: See HPI Physical Exam Physical Exam: GENERAL: No acute distress. Vital signs reviewed. EYES: PERRLA. EOMI. Anicteric sclerae. HENT: Moist mucous membranes. RESPIRATORY: Clear to auscultation bilaterally. No wheezing, rales, or rhonchi. CARDIOVASCULAR: Tachycardic but regular rhythm. No murmurs. ABDOMEN: Soft. Obese abdomen. Surgical incision lower transverse is covered with dressing that is C/D/I. Mild tenderness to palpation throughout abdomen. Normal bowel sounds. EXTREMITIES: 2+ BLE edema. SKIN: Warm, dry. NEUROLOGIC: No focal neurological deficits. CN II-XII grossly intact. PSYCHIATRIC: Cooperative. Appropriate mood and affect. Results & Data Results & Data ([facility]) Vital Signs (Past 12 Hours) Vital Signs Temp Pulse Resp BP Pulse Ox 12/07/21 02:22 92 H 98 12/07/21 02:17 98 H 93 12/07/21 02:15 99 H 91 12/07/21 02:13 101 H 138/78 12/07/21 02:12 100 H 93 12/07/21 02:08 36.5 C 18 12/07/21 02:07 102 H 95 12/07/21 02:02 107 H 95 12/07/21 02:00 18 12/07/21 01:59 102 H 91 12/07/21 01:57 108 H 93 12/07/21 01:52 109 H 73 L 12/07/21 01:47 110 H 76 L 12/07/21 01:45 106 H 89 L 12/07/21 01:43 105 H 137/65 12/07/21 01:42 107 H 90 12/07/21 01:40 18 12/07/21 01:37 109 H 91 12/07/21 01:34 108 H 91 12/07/21 01:32 110 H 87 L 12/07/21 01:27 110 H 88 L 12/07/21 01:24 107 H 91 12/07/21 01:22 113 H 91 12/07/21 01:17 113 H 86 L 12/07/21 01:13 107 H 137/73 12/07/21 01:12 105 H 91 12/07/21 01:07 107 H 85 L 12/07/21 01:04 107 H 89 L 12/07/21 01:02 110 H 86 L 12/07/21 00:58 105 H 91 12/07/21 00:57 107 H 91 12/07/21 00:53 104 H 91 12/07/21 00:52 104 H 91 12/07/21 00:47 106 H 89 L 12/07/21 00:43 104 H 131/65 90 12/07/21 00:42 103 H 93 12/07/21 00:40 18 12/07/21 00:37 106 H 95 12/07/21 00:32 107 H 93 12/07/21 00:31 107 H 91 12/07/21 00:27 106 H 90 12/07/21 00:26 108 H 91 12/07/21 00:22 111 H 92 12/07/21 00:19 112 H 91 12/07/21 00:17 112 H 88 L 12/07/21 00:13 104 H 130/63 12/07/21 00:12 108 H 93 12/07/21 00:11 107 H 91 12/07/21 00:07 106 H 92 12/07/21 00:05 107 H 91 12/07/21 00:02 107 H 92 12/06/21 23:58 111 H 91 12/06/21 23:57 111 H 92 12/06/21 23:52 106 H 93 12/06/21 23:47 112 H 94 12/06/21 23:43 115 H 134/66 90 12/06/21 23:42 113 H 91 12/06/21 23:40 18 12/06/21 23:37 109 H 91 12/06/21 23:32 115 H 90 12/06/21 23:27 119 H 90 12/06/21 23:24 111 H 159/74 H 12/06/21 23:23 111 H 91 12/06/21 23:22 112 H 92 12/06/21 23:17 115 H 87 L 12/06/21 23:14 114 H 166/117 H 12/06/21 23:13 110 H 90 12/06/21 23:12 109 H 94 12/06/21 23:07 114 H 91 12/06/21 23:04 112 H 90 12/06/21 23:02 118 H 90 12/06/21 22:57 115 H 89 L 12/06/21 22:52 116 H 85 L 12/06/21 22:47 113 H 89 L 12/06/21 22:43 120 H 133/69 12/06/21 22:42 113 H 87 L 12/06/21 22:40 18 12/06/21 22:37 114 H 88 L 12/06/21 22:32 116 H 91 12/06/21 22:31 117 H 90 12/06/21 22:27 117 H 87 L 12/06/21 22:25 119 H 90 12/06/21 22:22 121 H 87 L 12/06/21 22:20 117 H 90 12/06/21 22:17 117 H 88 L 12/06/21 22:13 112 H 145/84 H 90 12/06/21 22:12 109 H 93 12/06/21 22:07 108 H 94 12/06/21 22:03 110 H 89 L 12/06/21 22:02 110 H 93 12/06/21 21:57 116 H 88 L 12/06/21 21:53 115 H 90 12/06/21 21:52 114 H 92 12/06/21 21:47 112 H 93 12/06/21 21:46 36.4 C L 12/06/21 21:44 113 H 91 12/06/21 21:43 115 H 157/74 H 12/06/21 21:42 115 H 91 12/06/21 21:40 18 12/06/21 21:37 125 H 86 L 12/06/21 21:33 112 H 91 12/06/21 21:32 110 H 92 12/06/21 21:31 107 H 145/73 H 12/06/21 21:27 108 H 92 12/06/21 21:24 110 H 91 12/06/21 21:22 104 H 95 12/06/21 21:17 108 H 93 12/06/21 21:13 104 H 135/78 12/06/21 21:12 104 H 94 12/06/21 21:10 36.4 C L 18 12/06/21 21:07 102 H 92 12/06/21 21:02 95 H 94 12/06/21 20:57 95 H 97 12/06/21 20:54 98 H 91 12/06/21 20:52 98 H 93 12/06/21 20:51 99 H 149/72 H 12/06/21 20:48 98 H 91 12/06/21 20:47 97 H 95 12/06/21 20:42 97 H 144/68 H 93 12/06/21 20:40 99 H 18 93 12/06/21 20:37 102 H 91 12/06/21 20:34 97 H 94 12/06/21 20:32 98 H 138/76 96 12/06/21 20:30 18 12/06/21 20:27 102 H 84 L 12/06/21 20:22 95 H 95 12/06/21 20:21 95 H 148/71 H 12/06/21 20:20 18 12/06/21 20:17 94 H 98 12/06/21 20:14 99 H 94 12/06/21 20:12 97 H 146/74 H 98 12/06/21 20:10 36.4 C L 18 12/06/21 20:07 93 H 100 12/06/21 20:04 93 H 99/50 L 12/06/21 20:02 94 H 100 12/06/21 20:00 18 12/06/21 19:57 92 H 100 12/06/21 19:52 90 100 12/06/21 19:50 36.4 C L 18 12/06/21 19:49 96 H 103/51 L 12/06/21 19:47 97 H 100 12/06/21 17:56 105 H 97 12/06/21 17:51 113 H 98 12/06/21 17:46 107 H 97 12/06/21 17:05 99 H 153/68 H 12/06/21 16:51 95 H 166/79 H 12/06/21 16:35 92 H 177/81 H 12/06/21 16:18 36.7 C 92 H 18 170/84 H 12/06/21 16:04 92 H 170/84 H 12/06/21 16:03 36.7 C 18 Laboratory Results 12/06/21 12/06/21 12/06/21 Range/Units 21:20 21:05 21:03 WBC (4.8-10.8) K/uL RBC (4.2-5.4) M/uL Hgb (12.0-16.0) g/dL Hct (37-47) % MCV (80-100) fL MCH (25-34) pg MCHC (32-36) g/dL RDW Std Deviation (36.4-46.3) fL RDW Coeff of Melecio (11.5-14.5) % Plt Count (130-400) K/uL MPV (7.4-10.4) fL Sodium (136-145) mmol/L Potassium (3.5-5.1) mmol/L Chloride (98-107) mmol/L Carbon Dioxide (21-32) mmol/L Anion Gap (3-11) BUN (6-23) mg/dl Creatinine (0.6-1.2) mg/dl Est Cr Clr Drug Dosing Est GFR ( Amer) ml/min Est GFR (Non-Af Amer) ml/min BUN/Creatinine Ratio (10-20) Glucose (70-99(Fasting)) mg/dl POC Glucose 76 64 L* 66 L* (70-99) mg/dl Calcium (8.5-10.1) mg/dl Total Bilirubin (0.2-1.0) mg/dl AST (13-39) U/L ALT (7-52) U/L Alkaline Phosphatase (34-104) U/L Total Protein (6.0-8.3) gm/dl Albumin (3.4-5.0) gm/dl Globulin (2.5-4.0) gm/dl Albumin/Globulin Ratio (0.9-2) SARS-CoV-2, RNA, NAAT (NEGATIVE) 12/06/21 12/06/21 12/06/21 Range/Units 17:13 16:43 16:39 WBC (4.8-10.8) K/uL RBC (4.2-5.4) M/uL Hgb (12.0-16.0) g/dL Hct (37-47) % MCV (80-100) fL MCH (25-34) pg MCHC (32-36) g/dL RDW Std Deviation (36.4-46.3) fL RDW Coeff of Melecio (11.5-14.5) % Plt Count (130-400) K/uL MPV (7.4-10.4) fL Sodium (136-145) mmol/L Potassium (3.5-5.1) mmol/L Chloride (98-107) mmol/L Carbon Dioxide (21-32) mmol/L Anion Gap (3-11) BUN (6-23) mg/dl Creatinine (0.6-1.2) mg/dl Est Cr Clr Drug Dosing Est GFR ( Amer) ml/min Est GFR (Non-Af Amer) ml/min BUN/Creatinine Ratio (10-20) Glucose (70-99(Fasting)) mg/dl POC Glucose 61 L* 66 L* (70-99) mg/dl Calcium (8.5-10.1) mg/dl Total Bilirubin (0.2-1.0) mg/dl AST (13-39) U/L ALT (7-52) U/L Alkaline Phosphatase (34-104) U/L Total Protein (6.0-8.3) gm/dl Albumin (3.4-5.0) gm/dl Globulin (2.5-4.0) gm/dl Albumin/Globulin Ratio (0.9-2) SARS-CoV-2, RNA, NAAT NEGATIVE (NEGATIVE) 12/06/21 12/06/21 Range/Units 16:33 16:33 WBC 9.37 (4.8-10.8) K/uL RBC 4.32 (4.2-5.4) M/uL Hgb 10.1 L (12.0-16.0) g/dL Hct 32.9 L (37-47) % MCV 76.2 L (80-100) fL MCH 23.4 L (25-34) pg MCHC 30.7 L (32-36) g/dL RDW Std Deviation 46.4 H (36.4-46.3) fL RDW Coeff of Melecio 16.7 H (11.5-14.5) % Plt Count 219 (130-400) K/uL MPV 9.2 (7.4-10.4) fL Sodium 136 (136-145) mmol/L Potassium 3.8 (3.5-5.1) mmol/L Chloride 106 (98-107) mmol/L Carbon Dioxide 22 (21-32) mmol/L Anion Gap 8 (3-11) BUN 11 (6-23) mg/dl Creatinine 0.57 L (0.6-1.2) mg/dl Est Cr Clr Drug Dosing Not Reportable Est GFR ( Amer) 138.2 ml/min Est GFR (Non-Af Amer) 119.3 ml/min BUN/Creatinine Ratio 19.3 (10-20) Glucose 64 L (70-99(Fasting)) mg/dl POC Glucose (70-99) mg/dl Calcium 8.6 (8.5-10.1) mg/dl Total Bilirubin 0.3 (0.2-1.0) mg/dl AST 15 (13-39) U/L ALT 12 (7-52) U/L Alkaline Phosphatase 135 H (34-104) U/L Total Protein 6.6 (6.0-8.3) gm/dl Albumin 3.3 L (3.4-5.0) gm/dl Globulin 3.3 (2.5-4.0) gm/dl Albumin/Globulin Ratio 1.0 (0.9-2) SARS-CoV-2, RNA, NAAT (NEGATIVE) Resident Activity Tracking Resident Involvement: Resident Care Provided Care Provided: Adult Hospital Medicine
[2021-12-07] MEDS: LACTATED RINGER'S 1,000 ML IV SCH ×2 (05:46→13:03)
[2021-12-07] MEDS: LEVOTHYROXINE SODIUM 125 MCG TABLET PO SCH (06:16)
[2021-12-07 06:35] LABS: Hematocrit (blood only) 32.3 % (37-47); Hemoglobin 9.8 g/dL (12.0-16.0); Immature Granulocytes # (auto) 0.19 K/uL (0.00-0.02); Immature Granulocytes % (auto) 1.3 %; Lymphocytes # (auto) 0.61 K/uL (1.2-3.4); Lymphocytes % (auto) 4.3 %; Mean Corpuscular Hemoglobin 23.2 pg (25-34); Mean Corpuscular Hgb Conc 30.3 g/dL (32-36); Mean Corpuscular Volume 76.4 fL (80-100); Mean Platelet Volume 8.9 fL (7.4-10.4); Monocytes # (auto) 0.46 K/uL (0.11-0.59); Monocytes % (auto) 3.3 %; Neutrophils # (auto) 12.82 K/uL (1.4-6.5); Neutrophils % (auto) 91.1 %; Nucleated RBC # (auto) 0.02 K/uL (0-0); Nucleated RBC % (auto) 0.1 %; Platelet Count 229 K/uL (130-400); RDW Coefficient of Variation 16.7 % (11.5-14.5); RDW Standard Deviation 46.3 fL (36.4-46.3); Red Blood Count 4.23 M/uL (4.2-5.4); White Blood Count 14.08 K/uL (4.8-10.8)
[2021-12-07] MEDS ORDERED: DEXTROSE 50% 50 ML SYRINGE IV PRN (06:40)
[2021-12-07] MEDS ORDERED: GLUCAGON FOR INJ 1 MG VIAL SQ PRN (06:40)
[2021-12-07] MEDS ORDERED: GLUCOSE 40% GEL 15 GM TUBE PO PRN (06:40)
[2021-12-07] MEDS ORDERED: GLUCOSE 10 TABS/TUBE PO PRN (06:40)
[2021-12-07] MEDS ORDERED: PHARMACY GLYCEMIC MGMT CONSULT PRN (06:40)
[2021-12-07] MEDS ORDERED: CARBOHYDRATES FOR HYPOGLYCEMIA PO PRN (06:40)
[2021-12-07] MEDS: INSULIN ASPART PER UNIT SC SCH ×4 (07:30→21:24)
[2021-12-07] MEDS: OXYTOCIN 30 UNITS in LACTATED RINGER'S 1,000 ML IV SCH (08:20)
[2021-12-07] MEDS: SIMETHICONE 80 MG CHEW PO SCH ×3 (08:25→17:14)
[2021-12-07] MEDS: FERROUS SULFATE 325 MG TAB PO SCH (08:25)
[2021-12-07] MEDS: DOCUSATE SODIUM 100 MG CAP PO SCH ×2 (08:25→21:23)
[2021-12-07] MEDS: PRENATAL VITAMIN 1 TAB PO SCH (08:25)
[2021-12-07] MEDS: PANTOprazole 40 MG TAB PO SCH (08:26)
[2021-12-07] MEDS: CETIRIZINE HCL 10 MG TABLET PO SCH (08:26)
[2021-12-07] MEDS: VENLAFAXINE HCL XR 75 MG CAPXR PO SCH (08:26)
[2021-12-07] MEDS ORDERED: metFORMIN HCL ER 500 MG TABCR PO ONE (08:45)
[2021-12-07] MEDS ORDERED: INSULIN GLARGINE SOLOSTAR 100 UNITS/ML 3 ML PEN SC SCH (09:00)
[2021-12-07] MEDS: LABETALOL HCL 100 MG TAB PO SCH ×2 (09:10→21:23)
--- NOTE | 2021-12-07 09:27 | Obstetrical Progress Note ---
Date of Service December 07, 2021 Assessment & Plan (1) Postcesarean section: Plan: 36yo POD 1 s/p repeat LTCS at 36 weeks 5 days. Complicated by preeclampsia with severe features. -Continue routine care -Vitals reviewed- HDS, afebrile -GBS unknown, treated -fernando in place, void trial when able -Encourage ambulation, regular diet -Pain control with ibuprofen, acetaminophen PRN -Encourage -Hgb 9.8, stable (2) Severe preeclampsia: Plan: -superimposed on chronic HTN -BPs stable since a few hours after -s/p mag, cont. labetalol 100mg po bid (3) Type 2 diabetes mellitus affecting , antepartum: Plan: -on metformin, hospital team consulted (4) Obstructive sleep apnea: Plan: -continue CPAP, monitor pulse ox (5) Reactive airway disease: Plan: -continue inhalers prn (6) Depression: Plan: -continue SNRI (7) Hypothyroidism: (8) Chiari malformation type I: (9) Previous delivery affecting , antepartum: (10) Morbid obesity: Admission and Anticipated Discharge Date Admission Date: December 06, 2021 Supervising Physician Co-Signing Physician Notes Resident Physician Supervision Note: I interviewed and examined the patient. Discussed with Dr. Damon and agree with findings and plan as documented in the note. Any exceptions or clarifications are listed here: Documented By: Lady Wiggins MD, FACOG Subjective Ambulation: no Voiding: no, fernando in place Passing Gas: no BM: no Diet Tolerance: regular, denies N/V Lochia: small Feeding Type: Current Pain Level(1-10): 2 Review of Systems Review of Systems: Denies fevers/chills. Denies dyspnea, cough. Denies chest pain. Denies headache. Denies back pain. Mild headache last night, resolved Physical Exam Physical Exam: General: Alert, oriented, no acute distress Cardiac: Regular rate and rhythm, normal S1, S2. No murmurs appreciated. Respiratory: Clear to auscultation b/l with good air flow entry, symmetric chest rise and fall. No wheezes or crackles. No increased work of breathing or accessory muscle use Abdomen: Soft, mild fundal tenderness, nondistended. Fundus firm and palpable at 1 cm below umbilicus. INDER intact over surgical incision site. Bowel sounds appreciated. No guarding or rebound. Skin: No rashes or lesions Extremities: Warm, dry, well-perfused with capillary refill <2s b/l. SCDs in place Results & Data ([facility]) Vital Signs (Past 12 Hours) Vital Signs Temp Pulse Resp BP Pulse Ox 12/07/21 09:17 95 H 94 12/07/21 09:13 100 H 90 12/07/21 09:12 106 H 92 12/07/21 09:07 99 H 94 12/07/21 09:02 95 H 94 12/07/21 08:57 95 H 93 12/07/21 08:54 96 H 91 12/07/21 08:52 94 H 94 12/07/21 08:47 94 H 94 12/07/21 08:42 95 H 93 12/07/21 08:37 101 H 95 12/07/21 08:36 98 H 91 12/07/21 08:32 99 H 92 12/07/21 08:29 99 H 91 12/07/21 08:27 100 H 92 12/07/21 08:22 102 H 94 12/07/21 08:21 100 H 91 12/07/21 08:17 97 H 91 12/07/21 08:15 98 H 91 12/07/21 08:12 99 H 92 12/07/21 08:08 98 H 91 12/07/21 08:07 97 H 92 12/07/21 08:02 100 H 94 12/07/21 08:00 16 91 12/07/21 07:59 99 H 91 12/07/21 07:57 100 H 92 12/07/21 07:52 102 H 92 12/07/21 07:48 101 H 91 12/07/21 07:47 101 H 91 12/07/21 07:42 106 H 90 12/07/21 07:37 102 H 89 L 12/07/21 07:33 104 H 91 12/07/21 07:32 105 H 90 12/07/21 07:27 102 H 91 12/07/21 07:25 96 H 91 12/07/21 07:23 98 H 139/64 12/07/21 07:22 99 H 92 12/07/21 07:17 102 H 90 12/07/21 07:14 97 H 91 12/07/21 07:12 96 H 91 12/07/21 07:07 96 H 89 L 12/07/21 07:04 101 H 91 12/07/21 07:02 98 H 90 12/07/21 07:00 16 92 12/07/21 06:59 103 H 91 12/07/21 06:57 103 H 87 L 12/07/21 06:52 103 H 88 L 12/07/21 06:47 104 H 89 L 12/07/21 06:46 104 H 91 12/07/21 06:42 101 H 94 12/07/21 06:41 102 H 91 12/07/21 06:37 100 H 89 L 12/07/21 06:36 102 H 91 12/07/21 06:32 101 H 89 L 12/07/21 06:28 100 H 90 12/07/21 06:27 100 H 92 12/07/21 06:22 99 H 91 12/07/21 06:20 99 H 91 12/07/21 06:17 101 H 91 12/07/21 06:15 103 H 91 12/07/21 06:13 105 H 121/59 L 12/07/21 06:12 104 H 88 L 12/07/21 06:07 105 H 89 L 12/07/21 06:02 105 H 78 L 12/07/21 05:57 104 H 86 L 12/07/21 05:55 18 12/07/21 05:52 102 H 88 L 12/07/21 05:47 103 H 89 L 12/07/21 05:42 104 H 88 L 12/07/21 05:37 99 H 89 L 12/07/21 05:32 100 H 89 L 12/07/21 05:27 105 H 90 12/07/21 05:22 101 H 91 12/07/21 05:21 102 H 91 12/07/21 05:17 99 H 91 12/07/21 05:16 99 H 91 12/07/21 05:12 100 H 91 12/07/21 05:10 101 H 91 12/07/21 05:07 104 H 92 12/07/21 05:05 103 H 90 12/07/21 05:02 98 H 85 L 12/07/21 04:57 97 H 87 L 12/07/21 04:52 99 H 90 12/07/21 04:50 101 H 90 12/07/21 04:47 98 H 95 12/07/21 04:43 98 H 136/71 12/07/21 04:42 99 H 89 L 12/07/21 04:41 98 H 89 L 12/07/21 04:40 18 12/07/21 04:37 100 H 91 12/07/21 04:33 102 H 91 12/07/21 04:32 98 H 95 12/07/21 04:27 101 H 94 12/07/21 04:23 102 H 90 12/07/21 04:22 98 H 97 12/07/21 04:17 99 H 95 12/07/21 04:15 104 H 90 12/07/21 04:13 99 H 131/73 12/07/21 04:12 101 H 97 12/07/21 04:09 103 H 90 12/07/21 04:07 102 H 93 12/07/21 04:04 103 H 90 12/07/21 04:02 102 H 93 12/07/21 04:00 18 12/07/21 03:57 100 H 96 12/07/21 03:55 100 H 90 12/07/21 03:52 105 H 94 12/07/21 03:47 101 H 98 12/07/21 03:45 104 H 88 L 12/07/21 03:43 101 H 139/68 12/07/21 03:42 101 H 96 12/07/21 03:37 104 H 95 12/07/21 03:32 101 H 96 12/07/21 03:27 102 H 96 12/07/21 03:22 104 H 95 12/07/21 03:17 100 H 97 12/07/21 03:13 100 H 140/71 12/07/21 03:12 97 H 98 12/07/21 03:07 103 H 97 12/07/21 03:02 101 H 96 12/07/21 03:00 18 12/07/21 02:57 101 H 97 12/07/21 02:52 101 H 96 12/07/21 02:47 105 H 98 12/07/21 02:43 99 H 139/73 12/07/21 02:42 98 H 97 12/07/21 02:37 99 H 97 12/07/21 02:32 94 H 98 12/07/21 02:27 97 H 18 98 12/07/21 02:22 92 H 98 12/07/21 02:17 98 H 93 12/07/21 02:15 99 H 91 12/07/21 02:13 101 H 138/78 12/07/21 02:12 100 H 93 12/07/21 02:08 36.5 C 18 12/07/21 02:07 102 H 95 12/07/21 02:02 107 H 95 12/07/21 02:00 18 12/07/21 01:59 102 H 91 12/07/21 01:57 108 H 93 12/07/21 01:52 109 H 73 L 12/07/21 01:47 110 H 76 L 12/07/21 01:45 106 H 89 L 12/07/21 01:43 105 H 137/65 12/07/21 01:42 107 H 90 12/07/21 01:40 18 12/07/21 01:37 109 H 91 12/07/21 01:34 108 H 91 12/07/21 01:32 110 H 87 L 12/07/21 01:27 110 H 88 L 12/07/21 01:24 107 H 91 12/07/21 01:22 113 H 91 12/07/21 01:17 113 H 86 L 12/07/21 01:13 107 H 137/73 12/07/21 01:12 105 H 91 12/07/21 01:07 107 H 85 L 12/07/21 01:04 107 H 89 L 12/07/21 01:02 110 H 86 L 12/07/21 00:58 105 H 91 12/07/21 00:57 107 H 91 12/07/21 00:53 104 H 91 12/07/21 00:52 104 H 91 12/07/21 00:47 106 H 89 L 12/07/21 00:43 104 H 131/65 90 12/07/21 00:42 103 H 93 12/07/21 00:40 18 12/07/21 00:37 106 H 95 12/07/21 00:32 107 H 93 12/07/21 00:31 107 H 91 12/07/21 00:27 106 H 90 12/07/21 00:26 108 H 91 12/07/21 00:22 111 H 92 12/07/21 00:19 112 H 91 12/07/21 00:17 112 H 88 L 12/07/21 00:13 104 H 130/63 12/07/21 00:12 108 H 93 12/07/21 00:11 107 H 91 12/07/21 00:07 106 H 92 12/07/21 00:05 107 H 91 12/07/21 00:02 107 H 92 12/06/21 23:58 111 H 91 12/06/21 23:57 111 H 92 12/06/21 23:52 106 H 93 12/06/21 23:47 112 H 94 12/06/21 23:43 115 H 134/66 90 12/06/21 23:42 113 H 91 12/06/21 23:40 18 12/06/21 23:37 109 H 91 12/06/21 23:32 115 H 90 12/06/21 23:27 119 H 90 12/06/21 23:24 111 H 159/74 H 12/06/21 23:23 111 H 91 12/06/21 23:22 112 H 92 12/06/21 23:17 115 H 87 L 12/06/21 23:14 114 H 166/117 H 12/06/21 23:13 110 H 90 12/06/21 23:12 109 H 94 12/06/21 23:07 114 H 91 12/06/21 23:04 112 H 90 12/06/21 23:02 118 H 90 12/06/21 22:57 115 H 89 L 12/06/21 22:52 116 H 85 L 12/06/21 22:47 113 H 89 L 12/06/21 22:43 120 H 133/69 12/06/21 22:42 113 H 87 L 12/06/21 22:40 18 12/06/21 22:37 114 H 88 L 12/06/21 22:32 116 H 91 12/06/21 22:31 117 H 90 12/06/21 22:27 117 H 87 L 12/06/21 22:25 119 H 90 12/06/21 22:22 121 H 87 L 12/06/21 22:20 117 H 90 12/06/21 22:17 117 H 88 L 12/06/21 22:13 112 H 145/84 H 90 12/06/21 22:12 109 H 93 12/06/21 22:07 108 H 94 12/06/21 22:03 110 H 89 L 12/06/21 22:02 110 H 93 12/06/21 21:57 116 H 88 L 12/06/21 21:53 115 H 90 12/06/21 21:52 114 H 92 12/06/21 21:47 112 H 93 12/06/21 21:46 36.4 C L 12/06/21 21:44 113 H 91 12/06/21 21:43 115 H 157/74 H 12/06/21 21:42 115 H 91 12/06/21 21:40 18 12/06/21 21:37 125 H 86 L 12/06/21 21:33 112 H 91 12/06/21 21:32 110 H 92 12/06/21 21:31 107 H 145/73 H 12/06/21 21:27 108 H 92 12/06/21 21:24 110 H 91 12/06/21 21:22 104 H 95 Resident Activity Tracking Resident Involvement: Resident Care Provided Care Provided: OB Delivery
[2021-12-07] MEDS: KETOROLAC 30 MG/ML VIAL IV PRN (10:06)
--- NOTE | 2021-12-07 12:13 | Communication Note ---
Date of Service: December 07, 2021 Patient evaluated this morning at the bedside. Patient feeling well. Discussed resuming and continuing her metformin with the possible need for in hospital SSI to ensure appropriate glucose control. Patient agreeable. She had no other concerns at this time and otherwise felt well. Plan: -Continue ACHS glucose checks in addition to SSI -Hold on basal insulin at this time -Continue Metformin 1000mg BID -Plan was discussed with the zone supervisor firearms OBGYN attending Thank you for allowing us to participate in the care of this patient. I personally examined the patient and verified all sanchez points of history and exam, discussed case, and agree with decision making with Dr Giang Resident Activity Tracking Resident Involvement: Resident Care Provided Care Provided: Adult Hospital Medicine
[2021-12-07] MEDS ORDERED: KETOROLAC 30 MG/ML VIAL IV PRN (12:40)
[2021-12-07] MEDS ORDERED: PROMETHAZINE HCL 25 MG in SODIUM CHLORIDE 0.9% 50 ML IV PRN (12:41)
[2021-12-07] MEDS ORDERED: ONDANSETRON INJ 2 MG/ML 2 ML VIAL IV PRN (12:41)
[2021-12-07] MEDS ORDERED: diphenhydrAMINE Capsule 25 MG CAP PO PRN (12:41)
[2021-12-07] MEDS ORDERED: diphenhydrAMINE 50 MG/ML VIAL IV PRN (12:41)
[2021-12-07] MEDS: metFORMIN HCL ER 500 MG TABCR PO SCH (17:49)
[2021-12-07] MEDS: LORazepam 0.5 MG TAB PO PRN (18:41)
[2021-12-08] MEDS: IBUPROFEN 600 MG TAB PO PRN ×4 (00:01→23:15)
--- NOTE | 2021-12-08 06:17 | Billing Data ---
Date of Service December 08, 2021 Coding Level of Care Code 19333 Inpt Consult Level 3
[2021-12-08] MEDS: LEVOTHYROXINE SODIUM 125 MCG TABLET PO SCH (06:36)
[2021-12-08] MEDS: oxyCODONE/ACETAMINOPHEN 5mg/325mg TAB PO PRN ×4 (06:37→23:15)
[2021-12-08 06:48] LABS: Hematocrit (blood only) 28.7 % (37-47); Hemoglobin 8.5 g/dL (12.0-16.0)
[2021-12-08 07:06] LABS: BUN Creatinine Ratio 30.3 (10-20); Calcium 8.3 mg/dl (8.5-10.1); Creatinine Clr Calc Pharmacy 193.6 ml/min; Est GFR (African American) 131.7 ml/min; Est GFR (Non-African American) 113.6 ml/min; Potassium 4.4 mmol/L (3.5-5.1)
[2021-12-08] MEDS: LORazepam 0.5 MG TAB PO PRN ×2 (07:33→23:15)
[2021-12-08] MEDS: INSULIN ASPART PER UNIT SC SCH ×4 (07:38→20:45)
--- NOTE | 2021-12-08 07:38 | Hospitalist Progress Note ---
Date of Service December 08, 2021 Assessment & Plan (1) Insulin resistance: Plan: [place] Jalloh is a 36 yo female s/p delivery on 12/06/21. Insulin Resistance DM - Patient with hx of insulin resistance and GDM - Per record review of PCP and endocrinology documentation, patient on metformin prior to current ; also with previous trial of Trulicity. Had been on insulin with previous as well. Patient states that she was only on metformin prior to most recent and started metformin + insulin during . Per OB records, patient was on insulin prior to . ?? complete medication regimen for hx of insulin resistance and GDM. - Last A1c 6.0% on 11/21/21 - Metformin was continued on 12/07/21 - Blood glucose levels have been appropriate on Metformin alone - SSI in place in case levels elevate, though has not required since resumption of metformin - Recommend follow up with endocrinology outpatient for continued management of DM2 cHTN - Agree w/ continuing labetalol 100mg po BID - Mgmt of pre-eclampsia per primary service Hypothyroidism - Continue home Synthroid - Recommend repeat TSH at 3 months - Continue outpt f/u with endocrinology [facility] - Continue use of home CPAP Anxiety - Continue home venlafaxine Plan discussed with distribution driver OBGYN attending Thank you for allowing us to participate in the care of this patient. At this time Medicine team will sign off, please notify if us if needed. (2) HTN (hypertension): (3) GERD without esophagitis: (4) Hypothyroidism: (5) Obstructive sleep apnea: Admission and Anticipated Discharge Date Admission Date: December 06, 2021 Supervising Physician Co-Signing Physician Notes I personally examined the patient and verified all sanchez points of history and exam, discussed case, and agree with decision making with Dr Giang feeling OK no new complaints vitals noted nad heent nc at mmm breathing unlabored no accessory muscles good effort insulin resistance, gestational DM - discussed current glucose levels, also discussed extensively lifestyle to prevent/reduce/potentially eliminate insulin resistance -- and how postprandial glucose monitoring can be helpful in learning from eating otherwise as above hospitalist team will sign off at this time, please call if we can be of further assistance; otherwise, have close PCP f/u after discharge to continue to manage insulin resistance and HTN Subjective Patient evaluated at the bedside this morning. She notes that over all she is doing well. Has not required any insulin. Denies fever, chills, SOB, chest pain, chest pressure. Review of Systems Review of Systems: All systems reviewed & are unremarkable except as noted in Subjective Physical Exam Constitutional: WD/WN, vitals as above Eyes: PERRL, conjunctivae normal, anicteric sclerae Neck: trachea midline, no thyromegaly Respiratory: normal respiratory effort, lungs clear to auscultation Cardiovascular: Rate/Rhythm: regular rate and regular rhythm Heart Sounds: no murmur Results & Data Results & Data ([facility]) Vital Signs (Past 12 Hours) Vital Signs Temp Pulse Resp BP Pulse Ox 12/08/21 00:00 37.0 C 72 18 146/80 H 95 Resident Activity Tracking Resident Involvement: Resident Care Provided Care Provided: Adult Hospital Medicine
[2021-12-08] MEDS: PRENATAL VITAMIN 1 TAB PO SCH (07:46)
[2021-12-08] MEDS: SIMETHICONE 80 MG CHEW PO SCH ×5 (07:46→20:38)
[2021-12-08] MEDS: FERROUS SULFATE 325 MG TAB PO SCH (07:47)
[2021-12-08] MEDS: metFORMIN HCL ER 500 MG TABCR PO SCH ×2 (07:50→16:03)
[2021-12-08] MEDS: PANTOprazole 40 MG TAB PO SCH (08:29)
[2021-12-08] MEDS: LABETALOL HCL 100 MG TAB PO SCH ×2 (08:29→20:38)
[2021-12-08] MEDS: CETIRIZINE HCL 10 MG TABLET PO SCH (08:29)
[2021-12-08] MEDS: VENLAFAXINE HCL XR 75 MG CAPXR PO SCH (08:30)
[2021-12-08] MEDS: DOCUSATE SODIUM 100 MG CAP PO SCH ×2 (08:32→20:40)
--- NOTE | 2021-12-08 09:26 | Obstetrical Progress Note ---
Date of Service December 08, 2021 Assessment & Plan (1) Postcesarean section: satisfactory post-op progress BP's have remained stable on 100mg labetalol bid and will continue with this dose for now will continue to monitor BP's Blood sugars are also good on current metformin dose will send scripts for Ativan (small # of pills) , percocet, motrin & labetalol to pharmacy. Subjective Ambulation: ambulating normally Voiding: no voiding problems Passing Gas:: Yes Diet Tolerance:: regular diet Lochia:: [place] had increased anxiety last night resolved with ativan. no PET symptoms. pain well controlled. Review of Systems All systems reviewed & are unremarkable except as noted in HPI & below Physical Exam Constitutional WD/WN, vitals as above Gastrointestinal (Abdomen) Inspection/Auscultation: + abdominal surgical incision (INDER dressing dry and intact) Psychiatric A+Ox3, euthymic affect Genitourinary OB Exam Abdomen: + fundal height Fundus: + firm Results & Data ([facility]) Vital Signs (Past 12 Hours) Vital Signs Temp Pulse Resp BP Pulse Ox 12/08/21 08:30 98.4 F 90 18 147/75 H 12/08/21 00:00 98.6 F 72 18 146/80 H 95
--- NOTE | 2021-12-08 16:09 | Billing Data ---
Date of Service December 08, 2021 Coding Level of Care Code 12625 Subseq Hosp Care Lvl 2
[2021-12-09] MEDS: LEVOTHYROXINE SODIUM 125 MCG TABLET PO SCH (07:07)
--- NOTE | 2021-12-09 07:10 | Obstetrical Progress Note ---
Date of Service December 09, 2021 Assessment & Plan (1) Postcesarean section: Plan: 36yo POD 3 s/p repeat LTCS at 36 weeks 5 days. Complicated by preeclampsia with severe features. -Continue routine care -Vitals reviewed- afebrile; mildly elevated BPs -GBS unknown, treated -Encourage ambulation, regular diet, voiding appropriately -INDER intact -Pain control with ibuprofen, acetaminophen, perc PRN -Encourage -Hgb 8.5 (12/09), stable -scripts for ativan, perc, labetalol sent -f/u 6 wks for routine OB visit after discharge (2) Severe preeclampsia: Plan: -superimposed on chronic HTN -BPs mildly elevated but stable, appears to be baseline -s/p mag, cont. labetalol 100mg po bid -f/u 1wk OB clinic for BP check (3) Insulin resistance: Plan: -cont. metformin (4) Depression: Plan: -cont. venlafaxine (5) Reactive airway disease: Plan: -cont. home inhalers (6) Morbid obesity: (7) Chiari malformation type I: Admission and Anticipated Discharge Date Admission Date: December 06, 2021 Supervising Physician Co-Signing Physician Notes Resident Physician Supervision Note: I interviewed and examined the patient. Discussed with Dr. Damon and agree with findings and plan as documented in the note. Any exceptions or clarifications are listed here: [None] Documented By: Polly Perez MD, FACOG Subjective Ambulation: yes Voiding: yes Passing Gas: yes BM: yes Diet Tolerance: regular, denies N/V Lochia: small Feeding Type: , pumping Current Pain Level(1-10): 2 Review of Systems Review of Systems: Denies fevers/chills. +mild cough. Denies dyspnea. Denies chest pain. Denies headache. Denies back pain. Denies headache. Denies dysuria. Physical Exam Physical Exam: General: Alert, oriented, no acute distress Cardiac: Regular rate and rhythm, normal S1, S2. No murmurs appreciated. Respiratory: Clear to auscultation b/l with good air flow entry, symmetric chest rise and fall. No wheezes or crackles. No increased work of breathing or accessory muscle use Abdomen: Soft, mild fundal tenderness, nondistended. Fundus firm and palpable at 2 cm below umbilicus. INDER intact over surgical incision site. Bowel sounds appreciated. No guarding or rebound. Skin: No rashes or lesions Extremities: Warm, dry, well-perfused with capillary refill <2s b/l. Mild lower extremity edema without erythema. Negative Rajinder's sign b/l. Results & Data ([facility]) Vital Signs (Past 12 Hours) Vital Signs Temp Pulse Resp BP Pulse Ox 12/09/21 03:20 36.7 C 90 18 144/86 H 100 12/08/21 23:15 36.7 C 106 H 18 133/75 96 12/08/21 20:40 37.4 C 94 H 18 144/85 H 96 Resident Activity Tracking Resident Involvement: Resident Care Provided Care Provided: OB Delivery
[2021-12-09] MEDS: INSULIN ASPART PER UNIT SC SCH (08:28)
[2021-12-09] MEDS: PRENATAL VITAMIN 1 TAB PO SCH (08:29)
[2021-12-09] MEDS: FERROUS SULFATE 325 MG TAB PO SCH (08:29)
[2021-12-09] MEDS: SIMETHICONE 80 MG CHEW PO SCH ×2 (08:29→13:07)
[2021-12-09] MEDS: DOCUSATE SODIUM 100 MG CAP PO SCH (08:29)
[2021-12-09] MEDS: metFORMIN HCL ER 500 MG TABCR PO SCH (08:30)
[2021-12-09] MEDS: PANTOprazole 40 MG TAB PO SCH (08:30)
[2021-12-09] MEDS: CETIRIZINE HCL 10 MG TABLET PO SCH (08:30)
[2021-12-09] MEDS: VENLAFAXINE HCL XR 75 MG CAPXR PO SCH (08:31)
[2021-12-09] MEDS: LABETALOL HCL 100 MG TAB PO SCH (08:39)
[2021-12-09] MEDS: LORazepam 0.5 MG TAB PO PRN (09:35)
[2021-12-09] MEDS: oxyCODONE/ACETAMINOPHEN 5mg/325mg TAB PO PRN (13:07)
[2021-12-09] MEDS: IBUPROFEN 600 MG TAB PO PRN (13:08)
--- NOTE | 2021-12-10 08:16 | Discharge Summary ---
Date of Service December 10, 2021 Admission HPI Per Admitting Provider 36yo @ 36w5d with visit in office today, BP found to be elevated to severe range despite taking baseline antihypertensive therapy. Additionally c/o swelling in hands which is causing a "tight" feeling, and is new since this morning. No changes to LE edema, no DELGADO, no vis changes, no RUQ pain. Patient has h/o CS, was planned for repeat with BTL. 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 On insulin & metformin both. Has cHTN on labetalol 100mg PO BID. Morbid obesity, weight 370lb. On SSRI for depression On Synthroid for hypothyroid. Prior low lying posterior placenta, now resolved. Sleep apnea, severe, using CPAP nightly. Anesthesia consult done as well as neurology input received for Chiari malformation: ok for attempt at spinal. Discharge Data Consultations 12/06/21 16:03 Consult Anesthesiology Stat 12/06/21 19:55 Consult Hospitalist Routine Procedures Performed Operation Date: 12/06/21 18:00 Actual Procedures p Section in LD for live female child at 1848(Not Applicable) - Lady Wiggins MD s Post Tubal Ligation Labor & Deliv - Lady Wiggins MD Hospital Course (1) Postcesarean section: 36yo POD 1 s/p repeat LTCS at 36 weeks 5 days. Complicated by preeclampsia with severe features. -Continue routine care -Vitals reviewed- HDS, afebrile -GBS unknown, treated -fernando in place, void trial when able -Encourage ambulation, regular diet -Pain control with ibuprofen, acetaminophen PRN -Encourage -Hgb 9.8, stable Discharged to home on POD#5 with labetalol, metformin, ativan prn anxiety, percocet for pain management, and plan for close f/u of BP in OB office plus endcrinology f/u for DM2. To continue use of CPAP at home. (2) Severe preeclampsia: -superimposed on chronic HTN -BPs stable since a few hours after -s/p mag, cont. labetalol 100mg po bid (3) Type 2 diabetes mellitus affecting , antepartum: -on metformin, hospital team consulted (4) Obstructive sleep apnea: -continue CPAP, monitor pulse ox (5) Reactive airway disease: -continue inhalers prn (6) Depression: -continue SNRI Coding Level of Care Code None Diagnoses Postcesarean section Z98.891 Severe preeclampsia O14.10 Type 2 diabetes mellitus affecting , antepartum O24.119 Obstructive sleep apnea G47.33 Reactive airway disease J45.909 Depression F32.A
== END 2021-12-09 14:20 | disposition home or self-care (01) | DRG 785 ==
LOC: OPB 15:34 → 4S1 15:36 → 4E2 12-07 15:30
PROC: M.PPTLD (2021-12-06 18:00)